=== PATIENT | female | born 1995 | race Caucasian/White ===

== ENCOUNTER 2017-10-05 21:31 | Outpatient (CLI) | payer BC, MEDICAID ==
[~2017-10-05] VITALS: Ht 157.5 cm; Wt 66.7 kg
[~2017-10-05 21:31] MED LIST: AC500T PO; ACHYD1T PO; ANTI15DR4 RIGHT EAR; CEPH500C PO; CYCL5TAB PO; DCS100C PO; HYDR1TAB PO; IBP800T PO; NAPR-243 PO; NITR100C3 PO; PREN1TAB14 PO; PREN1TAB39 PO; PRM25T PO; SULF1TAB38
[2017-10-05 21:49] VITALS: BP 133/78
[2017-10-05] MEDS ORDERED: ASPI-586 PO (23:25)
--- NOTE | 2017-10-06 00:57 | History & Physical ---
History and Physical Date Seen by Provider: Oct 05, 2017 Time Seen by Provider: 23:30 This patient is a 21-year-old white female currently at about 25 weeks gestation. She presented with complaint of abdominal pain after her other child accidentally kicked her in the abdomen. Patient reported having pain at that area. She denies ruptured membranes or bleeding. She is unsure whether she still contractions. Allergies are penicillin sulfa drugs and trimethoprim Medications are vitamins Medical surgical and social histories are per the antepartum record HEENT exam is normal Neck is supple no lymphadenopathy no thyromegaly Abdomen gravid soft nontender nondistended Extremities show no clubbing or cyanosis. His balance. Pelvic exam is deferred monitor fails to show contractions at this point we will continue monitoring for 4 hours after the episode from Patient is Rh- we will accomplish so maternal screen was negative antibody screen and if not contraindicated and we'll give RhoGAM Assessment and plan 25+ week in a patient with trauma to the abdomen during her . We will monitor for any signs of indications of the abruption as evidence by onset of contractions were bleeding or compromise. If the patient remains stable for 4 hours with no concerning findings will discharge home with follow-up in clinic Abdominal trauma in Allergies and Home Medications Allergies Coded Allergies: Sulfa(Sulfonamide Antibiotics) (Unverified Allergy, Severe, 01/15/10) Penicillins (Unverified Allergy, Mild, 06/25/09) Sulfamethoxazole (Unverified Allergy, 12/15/10) trimethoprim (Unverified Allergy, 12/15/10) Home Medications Aspirin 81 Mg Tablet.dr, 81 MG PO DAILY, (Reported) Vits W-Ca,Fe,Fa(<1MG) 1 Each Tablet, 1 EACH PO DAILY, (Reported) Patient Home Medication List Home Medication List Reviewed: Yes JOSE ALEJANDRO CRISTINA MD Oct 06, 2017 12:57 am
--- NOTE | 2017-10-06 01:00 | Discharge Instructions ---
Discharge Instructions Discharge Medications New, Converted or Re-Newed RX: Other Patient Instructions Patient Instructions: As instructed Return to The Hospital For: As instructed Activity & Diet Discharge Diet: No Restrictions Activity as Tolerated: Yes Orders-Post D/C & Referrals Follow Up Appt: Call to make follow up appt. for patient in 3 weeks. Activity: as tolerated. Diet: As tolerated. may shower or tub bathe as desired. JOSE ALEJANDRO CRISTINA MD Oct 06, 2017 1:00 am
== END 2017-10-06 02:25 | disposition home or self-care (01) ==
LOC: WSo 21:31 → LDRP 21:32 → WSo 10-06 02:25
PROVIDERS: ATTEND Obstetrics & Gynecology
DX: O9A.212 Injury, poisoning and certain other consequences of external causes complicating pregnancy, second trimester (principal); S39.91XA Unspecified injury of abdomen, initial encounter; W51.XXXA Accidental striking against or bumped into by another person, initial encounter; Z3A.25 25 weeks gestation of pregnancy; Z79.82 Long term (current) use of aspirin
CPT/HCPCS: 83033; 96372; 99213

== ENCOUNTER 2017-12-30 12:48 | Outpatient (CLI) | payer BC, MEDICAID ==
[~2017-12-30] VITALS: Ht 157.5 cm; Wt 73.9 kg
[~2017-12-30 12:48] MED LIST changes: +ASPI-586 PO
[2017-12-30 12:57] VITALS: BP 119/77
[2017-12-30] MEDS ORDERED: PNV1TABL81 PO (13:29)
[2018-01-03] MEDS ORDERED: OXYC1TAB12 PO (07:39)
[2018-01-03] MEDS ORDERED: DOCU100C37 PO (07:39)
[2018-01-03] MEDS ORDERED: IBUP-1780 PO (07:39)
[2018-01-04] MEDS ORDERED: OXYC-465 PO (07:53)
== END 2017-12-30 13:10 | disposition home or self-care (01) ==
LOC: EEVIPCON 12:48 → PREOP 12:48
PROVIDERS: ATTEND Obstetrics & Gynecology
DX: Z01.818 Encounter for other preprocedural examination (principal)
CPT/HCPCS: 87081

== ENCOUNTER 2018-01-01 10:20 | Inpatient (IN) | payer BC, MEDICAID ==
[~2018-01-01] VITALS: Ht 156.2 cm; Wt 73.9 kg
[~2018-01-01 10:20] MED LIST changes: +PNV1TABL81 PO
[2018-01-01 10:30] VITALS: BP 118/78
[2018-01-01] MEDS ORDERED: D5 LR IV SOLUTION 1,000 ML IV SCH (10:36)
[2018-01-01] MEDS ORDERED: LACTATED RINGERS 2,000 ML IV ONE (10:42)
[2018-01-01] MEDS ORDERED: CITRIC ACID/SOB CIT (BICITRA) 30 ML UDC PO ONE (10:45)
[2018-01-01] MEDS ORDERED: raNItidine INJECTION 50 MG in NS (IVPB) 50 ML IV ONE (10:45)
[2018-01-01] MEDS ORDERED: METOCLOPRAMIDE INJ 10 MG/2 ML (REGLAN) IV ONE (10:45)
--- OUTSIDE RECORDS SUMMARY | 2018-01-01 10:47 | XMS REPORT ---
Author Author KYLE MONAE Organization [facility] Address [address] [place] [address] Care Team Providers Care Special Police Officer Name Role Phone KYLE MONAE Unavailable PROBLEMS Type Condition ICD9-CM Code [id number] Code Onset Dates Condition Status SNOMED Code Problem Unspecified mood [affective] disorder F39 Active 62300932 Problem Acute sinusitis, unspecified 461.9 Active 45894682 ALLERGIES No Information ENCOUNTERS Encounter Location Date Diagnosis [facility] [id number] [place] [address] 94445- 7648 Dec, [facility] [id number] [place] [address] 28972- 2764 Dec, [facility] [id number] [place] [address] 96858- 1690 Dec, [facility] [id number] [place] [address] 58643- 4719 Dec, Unspecified mood [affective] disorder [address] [place] [address] [id number] [place] [address] 88422- 4339 Nov, Unspecified mood [affective] disorder [address] [place] [address] [id number] [place] [address] 09234- 2196 Nov, Unspecified mood [affective] disorder [id number] [place] [address] 13280- 0960 Nov, Unspecified mood [affective] disorder [id number] [place] [address] 50537- 6791 Oct, Unspecified mood [affective] disorder 9 [facility] [id number] [place] [address] 17113- 5588 Oct, Unspecified mood [affective] disorder [address] [facility] [id number], [place] [address] 7055 Oct, Unspecified mood [affective] disorder [address] [facility] [id number], [place] [address]- 9676 Oct, Unspecified mood [affective] disorder [address] [facility] [id number] [place] [address] 13695- 9063 Oct, Unspecified mood [affective] disorder [address] [facility] [id number] [place] [address] 19083- 8286 Sep, Unspecified mood [affective] disorder [address] [facility] [id number] [place] [address] 00903- 7215 Sep, Unspecified mood [affective] disorder [address] [facility] [id number] [place] [address] 46727- 9225 August, Unspecified mood [affective] disorder [address] [facility] [id number] [place] [address] 58307- 6493 August, Unspecified mood [affective] disorder [address] [facility] [id number], [place] [address]- 2676 August, Unspecified mood [affective] disorder [address] [facility] [id number], [place] [address]- 8737 August, Unspecified mood [affective] disorder [address] [facility] [id number], [place] [address]- 7175 Jul, Unspecified mood [affective] disorder [address] [facility] [id number] [place] [address] 24215- 1155 Jul, Unspecified mood [affective] disorder [address] [facility] [id number] [place] [address] 20633- 2528 Jul, Unspecified mood [affective] disorder F39 [facility] [address] [id number] [place] [address] Jul [facility] [address], [place] [address] 1696 Jul, Unspecified mood [affective] disorder F39 [facility] [address] [id number], [place] [address] 0000 Jul, Unspecified mood [affective] disorder F39 [facility] [address] [id number] [id number] Nov, Dental examination Z01.20 [facility] [address] [place] [address] 30068- 4309 Jul, [facility] [address], [place] [address] 3054 Jul, [facility] [address], [place] [address] 3890 Jan, [facility] [address], [place] [address] 3[address] Jan, [facility] [address] [place] [address] 14971- 4069 Dec, [facility] [address], [place] [address] 1742 Jan, [facility] [address], [place] [address] 4[address] May, [facility] [address] [id number], [place] [address] 4043 Mar, [facility] [address], [place] [address] 4895 Mar, [facility] [address] [id number], [place] [address] 6025 Mar, [facility] [address], [place] [address] 1066 Mar, [facility] [address] [facility] [id number] [place] [address]- 6886 Feb, IMMUNIZATIONS No Known Immunizations SOCIAL HISTORY Never Assessed REASON FOR VISIT f/u PLAN OF CARE Activity Details Follow Up 2 Weeks Reason:mood VITAL SIGNS MEDICATIONS Unknown Medications RESULTS No Results PROCEDURES Procedure Date Ordered Result Body Site Psychotherapy, patient &/family, 30 minutes, established patient November 12, 2017 INSTRUCTIONS MEDICATIONS ADMINISTERED No Known Medications MEDICAL (GENERAL) HISTORY Type Description Date Medical History pt is taking a cardiolepadopa Surgical History Surgical History breat augmentation Surgical History dental surgery Hospitalization History surgery
--- OUTSIDE RECORDS SUMMARY | 2018-01-01 10:47 | XMS REPORT ---
Author Author KYLE MONAE Organization [facility] Address [address] [place] [address] Care Team Providers Care Golf Tournament Consultant Name Role Phone KYLE MONAE Unavailable PROBLEMS Type Condition ICD9-CM Code MCZ07-GE Code Onset Dates Condition Status SNOMED Code Problem Unspecified mood [affective] disorder F39 Active 75894508 Problem Acute sinusitis, unspecified 461.9 Active 24329660 ALLERGIES No Information ENCOUNTERS Encounter Location Date Diagnosis [facility] [id number] [place] [address] 49439- 9312 Dec, [facility] [id number] [place] [address] 40123- 2588 Dec, [facility] [id number] [place] [address] 06613- 1955 Nov, Unspecified mood [affective] disorder [id number] [place] [address] 69102- 4479 Nov, Unspecified mood [affective] disorder [id number] [place] [address] 96673- 3082 Nov, Unspecified mood [affective] disorder [id number] [place] [address] 56148- 2779 Oct, Unspecified mood [affective] disorder [id number] [place] [address] 19076- 2407 Oct, Unspecified mood [affective] disorder [id number] [place] [address] 54328- 8180 Oct, Unspecified mood [affective] disorder [address] [place] [address]- 0598 Oct, Unspecified mood [affective] disorder [address] [place] [address] [address], [place] [address]- 2338 Oct, Unspecified mood [affective] disorder F39 [facility] [id number], [place] [address]- 9589 Sep, Unspecified mood [affective] disorder F39 [facility] [address], [place] [address]- 3808 Sep, Unspecified mood [affective] disorder [address], [place] [address]- 2599 August, Unspecified mood [affective] disorder [address] [place] [address] [address], [place] [address]- 9684 August, Unspecified mood [affective] disorder [address], [place] [address]- 2528 August, Unspecified mood [affective] disorder [address], [place] [address]- 3754 August, Unspecified mood [affective] disorder [address] [place] [address] [address], [place] [address]- 9374 Jul, Unspecified mood [affective] disorder [id number], [place] [address]- 4641 Jul, Unspecified mood [affective] disorder [id number], [place] [address]- 9347 Jul, Unspecified mood [affective] disorder [address] [id number] [place] [address] Jul [facility] [address] [facility] [id number], [place] [address]- 7962 Jul, Unspecified mood [affective] disorder F39 [facility] [address], [place] [address]- 1806 Jul, Unspecified mood [affective] disorder F39 [facility] [place] [facility] [address] [id number] [id number] Nov, Dental examination Z01.20 [facility] [address] [place] [address] 83631- 7347 Jul, [facility] [address], [place] [address]- 9678 Jul, [facility] [id number] [place] [address] 34774- 8506 Jan, [facility] [id number] [place] [address] 48524- 9594 Jan, [facility] [id number] [place] [address] 27445- 2980 Dec, [facility] [address] [place] [address] 28406- 0995 Jan, [facility] [address] [place] [address] 75145- 0687 May, [facility] [address], [place] [address]- 7637 Mar, [facility] [address] [place] [address] 20211- 9340 Mar, [facility] [address], [place] [address]- 0813 Mar, [facility] [id number] [place] [address] 58294- 1995 Mar, [facility] [address] [address] 1370 Feb, IMMUNIZATIONS No Known Immunizations SOCIAL HISTORY Never Assessed REASON FOR VISIT f/u PLAN OF CARE Activity Details Follow Up Next available Reason:mood VITAL SIGNS MEDICATIONS Unknown Medications RESULTS No Results PROCEDURES Procedure Date Ordered Result Body Site Psychotherapy, patient &/family, 45 minutes, established patient October 24, 2017 INSTRUCTIONS MEDICATIONS ADMINISTERED No Known Medications MEDICAL (GENERAL) HISTORY Type Description Date Medical History pt is taking a cardiolepadopa Surgical History Surgical History breat augmentation Surgical History dental surgery Hospitalization History surgery
--- OUTSIDE RECORDS SUMMARY | 2018-01-01 10:47 | XMS REPORT ---
Author Author KYLE MONAE Organization [facility] Address [address] [place] [address] Care Team Providers Care Machine Straw Hat Presser Name Role Phone KYLE MONAE Unavailable PROBLEMS Type Condition ICD9-CM Code OGC81-LT Code Onset Dates Condition Status SNOMED Code Problem Unspecified mood [affective] disorder F39 Active 26759619 Problem Acute sinusitis, unspecified 461.9 Active 36831151 ALLERGIES No Information ENCOUNTERS Encounter Location Date Diagnosis [facility] [id number] [place] [address] 16032- 2629 Dec, [facility] [id number] [place] [address] 09984- 6553 Dec, [facility] [id number] [place] [address] 61030- 3978 Nov, Unspecified mood [affective] disorder [id number] [place] [address] 41625- 9789 Nov, Unspecified mood [affective] disorder [id number] [place] [address] 18902- 1803 Nov, Unspecified mood [affective] disorder [id number] [place] [address] 74582- 6963 Oct, Unspecified mood [affective] disorder [id number] [place] [address] 41093- 7756 Oct, Unspecified mood [affective] disorder [id number] [place] [address] 54299- 9368 Oct, Unspecified mood [affective] disorder [address] [place] [address]- 5866 Oct, Unspecified mood [affective] disorder [address] [place] [address] [address], [place] [address]- 5734 Oct, Unspecified mood [affective] disorder F39 [facility] [id number], [place] [address]- 4387 Sep, Unspecified mood [affective] disorder F39 [facility] [address], [place] [address]- 5766 Sep, Unspecified mood [affective] disorder [address], [place] [address]- 8847 August, Unspecified mood [affective] disorder [address] [place] [address] [address], [place] [address]- 0804 August, Unspecified mood [affective] disorder [address], [place] [address]- 3566 August, Unspecified mood [affective] disorder [address], [place] [address]- 2805 August, Unspecified mood [affective] disorder [address] [place] [address] [address], [place] [address]- 8286 Jul, Unspecified mood [affective] disorder [id number], [place] [address]- 2485 Jul, Unspecified mood [affective] disorder [id number], [place] [address]- 3264 Jul, Unspecified mood [affective] disorder [address] [address] [address] [id number] [place] [address] Jul [facility] [address] [facility] [id number] [address]- 7971 Jul, Unspecified mood [affective] disorder F39 [facility] [address], [place] [address]- 5484 Jul, Unspecified mood [affective] disorder F39 [facility] [address] [id number] [id number] Nov, Dental examination Z01.20 [facility] [address], [place] [address]- 1597 Jul, [facility] [address], [place] [address]- 6825 Jul, [facility] [id number] [place] [address] 21947- 5097 Jan, [facility] [id number] [place] [address] 32397- 3015 Jan, [facility] [id number] [place] [address] 14609- 2175 Dec, [facility] [address] [place] [address] 51756- 0136 Jan, [facility] [address] [place] [address] 19945- 4627 May, [facility] [address], [place] [address]- 0656 Mar, [facility] [address] [place] [address] 62067- 6987 Mar, [facility] [address], [place] [address]- 5159 Mar, [facility] [id number] [place] [address] 34013- 1433 Mar, [facility] [address] [address] 5523 Feb, IMMUNIZATIONS No Known Immunizations SOCIAL HISTORY Never Assessed REASON FOR VISIT f/u PLAN OF CARE Activity Details Follow Up 1 Week Reason:mood VITAL SIGNS MEDICATIONS Unknown Medications RESULTS No Results PROCEDURES Procedure Date Ordered Result Body Site Psychotherapy, patient &/family, 45 minutes, established patient October 28, 2017 INSTRUCTIONS MEDICATIONS ADMINISTERED No Known Medications MEDICAL (GENERAL) HISTORY Type Description Date Medical History pt is taking a cardiolepadopa Surgical History Surgical History breat augmentation Surgical History dental surgery Hospitalization History surgery
--- OUTSIDE RECORDS SUMMARY | 2018-01-01 10:47 | XMS REPORT ---
Author Author KYLE MONAE Organization [facility] Address [address] [place] [address] Care Team Providers Care Handy Man Name Role Phone KYLE MONAE Unavailable PROBLEMS Type Condition ICD9-CM Code OMH06-TU Code Onset Dates Condition Status SNOMED Code Problem Unspecified mood [affective] disorder F39 Active [id number] Problem Acute sinusitis, unspecified 461.9 Active [id number] ALLERGIES No Information ENCOUNTERS Encounter Location Date Diagnosis [facility] [id number] [place] [address] 26109- 0994 Dec, [facility] [id number] [place] [address] 18311- 3428 Dec, [facility] [id number] [place] [address] 57942- 6188 Dec, Unspecified mood [affective] disorder [id number] [place] [address] 61236- 4135 Dec, [facility] [id number] [place] [address] 61038- 7245 Nov, Unspecified mood [affective] disorder [address] [place] [address] [id number] [place] [address] 80926- 1672 Nov, Unspecified mood [affective] disorder [id number] [place] [address] 75388- 0315 Nov, Unspecified mood [affective] disorder [id number] [place] [address] 71064- 4956 Oct, Unspecified mood [affective] disorder [id number] [place] [address] 35001- 2734 Oct, Unspecified mood [affective] disorder [address] [facility] [id number], [place] [address] 6307 Oct, Unspecified mood [affective] disorder [address] [facility] [id number], [place] [address] 1146 Oct, Unspecified mood [affective] disorder [address] [facility] [id number] [place] [address] 52081- 4683 Oct, Unspecified mood [affective] disorder [address] [facility] [id number] [place] [address] 70081- 0772 Sep, Unspecified mood [affective] disorder [address] [facility] [id number] [place] [address] 83734- 5938 Sep, Unspecified mood [affective] disorder [address] [facility] [id number] [place] [address] 05932- 2367 August, Unspecified mood [affective] disorder [address] [facility] [id number] [place] [address] 01872- 0888 August, Unspecified mood [affective] disorder [address] [facility] [id number], [place] [address] 8088 August, Unspecified mood [affective] disorder [address] [facility] [id number], [place] [address] 8808 August, Unspecified mood [affective] disorder [address] [facility] [id number], [place] [address]- 2672 Jul, Unspecified mood [affective] disorder [address] [facility] [id number] [place] [address] 12909- 2710 Jul, Unspecified mood [affective] disorder [address] [facility] [id number] [place] [address] 99629- 9251 Jul, Unspecified mood [affective] disorder F39 [facility] [address] [id number] [place] [address] Jul [facility] [address] [address] 1310 Jul, Unspecified mood [affective] disorder F39 [facility] [address] [id number] [address] 0382 Jul, Unspecified mood [affective] disorder F39 [facility] [address] [id number] [address] Nov, Dental examination Z01.20 [facility] [id number] [place] [address] 18519- 7721 Jul, [facility] [address]65[address] [address] 9116 Jul, [facility] [address]65100[place] [address] 7610 Jan, [facility] [address], [place] [address]- 9426 Jan, [facility] [id number] [place] [address] 46844- 1599 Dec, [facility] [address]65[address] [address] 9806 Jan, [facility] [address], [place] [address] 2899 May, [facility] [address] [id number], [place] [address] 1623 Mar, [facility] [address]65100[place], [place] [address]- 9226 Mar, [facility] [address] [id number], [place] [address]- 4603 Mar, [facility] [address], [place] [address]- 1186 Mar, [facility] [address] [facility] [id number] [place] [address]- 9416 Feb, IMMUNIZATIONS No Known Immunizations SOCIAL HISTORY Never Assessed REASON FOR VISIT f/u PLAN OF CARE Activity Details Follow Up 1 Week Reason:mood VITAL SIGNS MEDICATIONS Unknown Medications RESULTS No Results PROCEDURES Procedure Date Ordered Result Body Site Psychotherapy, patient &/family, 45 minutes, established patient November 01, 2017 INSTRUCTIONS MEDICATIONS ADMINISTERED No Known Medications MEDICAL (GENERAL) HISTORY Type Description Date Medical History pt is taking a cardiolepadopa Surgical History Surgical History breat augmentation Surgical History dental surgery Hospitalization History surgery
--- OUTSIDE RECORDS SUMMARY | 2018-01-01 10:48 | XMS REPORT ---
Author Author KYLE MONAE Organization [facility] Address [address] [place] [address] Care Team Providers Care Box Stapler Name Role Phone KYLE MONAE Unavailable PROBLEMS Type Condition ICD9-CM Code TFM83-IP Code Onset Dates Condition Status SNOMED Code Problem Unspecified mood [affective] disorder F39 Active 12097094 Problem Acute sinusitis, unspecified 461.9 Active [id number] ALLERGIES No Information ENCOUNTERS Encounter Location Date Diagnosis [facility] [id number] [place] [address] 73769- 5551 Nov, [facility] [address] 32939- 6740 Nov, Unspecified mood [affective] disorder [id number] [place] [address] 95460- 9087 Oct, Unspecified mood [affective] disorder [id number] [place] [address] 98585- 7171 Oct, Unspecified mood [affective] disorder [id number] [place] [address] 19083- 2819 Oct, Unspecified mood [affective] disorder [id number] [place] [address] 07821- 3713 Oct, Unspecified mood [affective] disorder [id number] [place] [address] 61001- 6292 Oct, Unspecified mood [affective] disorder [id number] [place] [address] 51082- 4440 Sep, Unspecified mood [affective] disorder [address] [facility] [id number], [place] [address]- 4520 Sep, Unspecified mood [affective] disorder F39 [facility] [address] [facility] [id number], [place] [address]- 4697 August, Unspecified mood [affective] disorder F39 [facility] [address] [facility] [id number], [place] [address]- 3609 August, Unspecified mood [affective] disorder F39 [facility] [address] [facility] [id number], [place] [address]- 7416 August, Unspecified mood [affective] disorder [address] [place] [address] [address] [facility] [id number], [place] [address]- 1176 August, Unspecified mood [affective] disorder [address] [place] [address] [address] [facility] [id number], [place] [address]- 8685 Jul, Unspecified mood [affective] disorder F39 [facility] [address] [facility] [id number], [place] [address]- 6520 Jul, Unspecified mood [affective] disorder F39 [facility] [address] [facility] [id number], [place] [address]- 7000 Jul, Unspecified mood [affective] disorder F[address] [id number] [place] [address] Jul [facility] [address]65[address], [place] [address]- 0906 Jul, Unspecified mood [affective] disorder F39 [facility] [address] [facility] [id number], [place] [address]- 6364 Jul, Unspecified mood [affective] disorder F39 [facility] [id number] [id number] Nov, Dental examination Z01.20 [facility] [address]65[address], [place] [address]- 2163 Jul, [facility] [address] [facility] [id number], [place] [address]- 5744 Jul, [facility] [address] [facility] [id number], [place] [address]- 2796 Jan, [facility] [address] [facility] [id number], [place] [address]- 4376 Jan, [facility] [address]65[address], [place] [address]- 7770 Dec, [facility] [address] [facility] [id number], [place] [address]- 1798 Jan, [facility] [address]65100[place], [place] [address]- 2516 May, [facility] [address]65100[place], [place] [address]- 8758 Mar, [facility] [address]65100[place], [place] [address]- 4821 Mar, [facility] [address] 7801 Mar, [facility] [address] [id number], [place] [address]- 2710 Mar, [facility] [address] [id number], [place] [address]- 3871 Feb, IMMUNIZATIONS No Known Immunizations SOCIAL HISTORY Never Assessed REASON FOR VISIT f/u, Depression. PLAN OF CARE Activity Details Follow Up 1 Week Reason:depression VITAL SIGNS MEDICATIONS Unknown Medications RESULTS No Results PROCEDURES Procedure Date Ordered Result Body Site Psychotherapy, patient &/family, 45 minutes, established patient August 26, 2017 INSTRUCTIONS MEDICATIONS ADMINISTERED No Known Medications MEDICAL (GENERAL) HISTORY Type Description Date Medical History pt is taking a cardiolepadopa Surgical History Surgical History breat augmentation Surgical History dental surgery Hospitalization History surgery
--- OUTSIDE RECORDS SUMMARY | 2018-01-01 10:48 | XMS REPORT ---
Author Author KYLE MONAE Organization [facility] Address [address] [place] [address] Care Team Providers Care Field Reporter Name Role Phone KYLE MONAE Unavailable PROBLEMS Type Condition ICD9-CM Code [id number] Code Onset Dates Condition Status SNOMED Code Problem Unspecified mood [affective] disorder F39 Active 61798374 Problem Acute sinusitis, unspecified 461.9 Active [id number] ALLERGIES No Information ENCOUNTERS Encounter Location Date Diagnosis [facility] [id number] [place] [address] 03784- 2253 Nov, [facility] [address] 12263- 5232 Nov, Unspecified mood [affective] disorder [id number] [place] [address] 36441- 0882 Oct, Unspecified mood [affective] disorder [id number] [place] [address] 56473- 3228 Oct, Unspecified mood [affective] disorder [id number] [place] [address] 11375- 8496 Oct, Unspecified mood [affective] disorder [id number] [place] [address] 26640- 3077 Oct, Unspecified mood [affective] disorder [id number] [place] [address] 50405- 4751 Oct, Unspecified mood [affective] disorder [id number] [place] [address] 75235- 6541 Sep, Unspecified mood [affective] disorder [address] [facility] [id number] [address]- 6902 Sep, Unspecified mood [affective] disorder F39 [facility] [address] [facility] [id number] [place] [address]- 9761 August, Unspecified mood [affective] disorder F39 [facility] [address] [facility] [id number] [place] [address]- 9343 August, Unspecified mood [affective] disorder F39 [facility] [address] [facility] [id number] [place] [address]- 2801 August, Unspecified mood [affective] disorder [address] [place] [address] [facility] [id number] [place] [address]- 9930 August, Unspecified mood [affective] disorder [address] [place] [address] [facility] [id number] [place] [address]- 7702 Jul, Unspecified mood [affective] disorder F39 [facility] [address] [facility] [id number] [place] [address]- 9690 Jul, Unspecified mood [affective] disorder F39 [facility] [address] [facility] [id number] [place] [address]- 7739 Jul, Unspecified mood [affective] disorder F[address] [id number] [place] [address] Jul [facility] [address]00565100[place] [address]- 6910 Jul, Unspecified mood [affective] disorder F39 [facility] [address] [facility] [id number] [place] [address]- 8176 Jul, Unspecified mood [affective] disorder F39 [facility] [address] [id number] [address] Nov, Dental examination Z01.20 [facility] [address]00565100[place] [address]- 8182 Jul, [facility] [address] [id number] [address]- 5461 Jul, [facility] [address] [facility] [id number] [place] [address]- 8316 Jan, [facility] [address] [facility] [id number] [place] [address]- 2376 Jan, [facility] [address]00565100[place] [address]- 9995 Dec, [facility] [address] [facility] [id number] [place] [address]- 6120 Jan, [facility] [address]00565100[place] [address]- 6696 May, [facility] [address]00565100[place] [address]- 8094 Mar, [facility] [address]00565100[place] [address]- 9333 Mar, [facility] [address]- 1941 Mar, [facility] [address] [id number] [address]- 0686 Mar, [facility] [address] [id number] [address]- 0433 Feb, IMMUNIZATIONS No Known Immunizations SOCIAL HISTORY Never Assessed REASON FOR VISIT f/u, Depression. PLAN OF CARE Activity Details Follow Up 1 Week Reason:depression VITAL SIGNS MEDICATIONS Unknown Medications RESULTS No Results PROCEDURES Procedure Date Ordered Result Body Site Psychotherapy, patient &/family, 45 minutes, established patient August 19, 2017 INSTRUCTIONS MEDICATIONS ADMINISTERED No Known Medications MEDICAL (GENERAL) HISTORY Type Description Date Medical History pt is taking a cardiolepadopa Surgical History Surgical History breat augmentation Surgical History dental surgery Hospitalization History surgery
--- OUTSIDE RECORDS SUMMARY | 2018-01-01 10:48 | XMS REPORT ---
Author Author PHYLICIA JESSICA [facility] Address [address] [place] [address] Care Team Providers Care Glass Breaker Name Role Phone PHYLICIA JESSICA Unavailable PROBLEMS Type Condition ICD9-CM Code NHX06-GM Code Onset Dates Condition Status SNOMED Code Problem Unspecified mood [affective] disorder F39 Active 53800631 Problem Acute sinusitis, unspecified 461.9 Active 03640743 ALLERGIES Substance Reaction Event Type Date Status Clindamycin HCl rash Drug Allergy August, Active sulfa drugs anaphylaxis Non Drug Allergy August, Active penicillian rash Non Drug Allergy August, Active ENCOUNTERS Encounter Location Date Diagnosis [facility] [id number] [place] [address] 46655- 1005 Nov, [facility] [id number] [place] [address] 03975- 5771 Nov, Unspecified mood [affective] disorder [id number] [place] [address] 08447- 2684 Oct, Unspecified mood [affective] disorder [id number] [place] [address] 18778- 2670 Oct, Unspecified mood [affective] disorder [id number] [place] [address] 60711- 2242 Oct, Unspecified mood [affective] disorder [id number] [place] [address] 00745- 9712 Oct, Unspecified mood [affective] disorder [id number] [place] [address] 05844- 2868 Oct, Unspecified mood [affective] disorder [address] [id number] [place] [address]- 6814 Sep, Unspecified mood [affective] disorder F39 [facility] [address] [facility] [id number] [place] [address]- 0541 Sep, Unspecified mood [affective] disorder [address] [facility] [id number] [place] [address]- 3617 August, Unspecified mood [affective] disorder [address] [id number] [place] [address]- 0665 August, Unspecified mood [affective] disorder [address] [facility] [id number] [place] [address]- 2218 August, Unspecified mood [affective] disorder [address] [facility] [id number] [place] [address]- 9966 August, Unspecified mood [affective] disorder [address] [facility] [id number] [place] [address]- 4346 Jul, Unspecified mood [affective] disorder [address] [facility] [id number] [place] [address]- 2701 Jul, Unspecified mood [affective] disorder [address] [facility] [id number] [place] [address]- 3131 Jul, Unspecified mood [affective] disorder [address] [id number] [place] [address] Jul [facility] [address] [facility] [id number] [place] [address]- 2274 Jul, Unspecified mood [affective] disorder [address] [facility] [id number] [place] [address]- 6003 Jul, Unspecified mood [affective] disorder [address] [facility] [address] [id number] [place] [id number] Nov, Dental examination Z01.20 [facility] [address]005[address]100[place] [address]- 1486 14 Jul, 2014 [facility] [address]00565100[place] [address]- 2656 Jul, [facility] [address]00565100[place] [address]- 4706 Jan, [facility] [id number] [place] [address] 84589- 2856 Jan, [facility] [id number] [place] [address] 70202- 4906 Dec, [facility] [id number] [place] [address] 74143- 3106 Jan, [facility] [id number] [address] 98822- 0536 May, [facility] [address] [id number] [address]- 5206 Mar, [facility] [address] [id number] [address]- 2996 Mar, [facility] [address]00565100[place] [address]- 6516 Mar, [facility] [address]100[place] [address]- 8766 Mar, [facility] [address]00565100[place] [address]- 0716 Feb, IMMUNIZATIONS No Known Immunizations SOCIAL HISTORY Never Assessed REASON FOR VISIT BH intake Henrik PLAN OF CARE Activity Details Follow Up 4 Weeks, prn Reason: VITAL SIGNS Height 61.5 in 2017-08-26 Weight 144.2 lbs 2017-08-26 Heart Rate 84 bpm 2017-08-26 Respiratory Rate 18 2017-08-26 BMI 26.80 kg/m2 2017-08-26 Blood pressure systolic 118 mmHg 2017-08-26 Blood pressure diastolic 68 mmHg 2017-08-26 MEDICATIONS Medication Instructions Dosage Frequency Start Date End Date Duration Status Aspirin Adult Low Dose 81 MG Orally Once a day 1 tablet 24h Active Vitamins 28-0.8 MG Orally Once a day 1 tablet 24h Active Astepro 0.15 % (205.5 mcg) spray 2 sprays (411 mcg) in each nostril by intranasal route 2 times per day Dec, Not-Taking RESULTS No Results PROCEDURES No Known procedures INSTRUCTIONS MEDICATIONS ADMINISTERED No Known Medications MEDICAL (GENERAL) HISTORY Type Description Date Medical History pt is taking a cardiolepadopa Surgical History Surgical History breat augmentation Surgical History dental surgery Hospitalization History surgery
--- OUTSIDE RECORDS SUMMARY | 2018-01-01 10:48 | XMS REPORT ---
Author Author KYLE MONAE Organization [facility] Address [address] [place] [address] Care Team Providers Care Vocational Placement Specialist Name Role Phone KYLE MONAE Unavailable PROBLEMS Type Condition ICD9-CM Code [id number] Code Onset Dates Condition Status SNOMED Code Problem Unspecified mood [affective] disorder F39 Active [id number] Problem Acute sinusitis, unspecified 461.9 Active [id number] ALLERGIES No Information ENCOUNTERS Encounter Location Date Diagnosis [facility] [id number] [place] [address] 31267- 4202 Dec, [facility] [id number] [place] [address] 63126- 1814 Nov, [facility] [id number] [place] [address] 99672- 4921 Nov, Unspecified mood [affective] disorder [id number] [place] [address] 34448- 1732 Nov, Unspecified mood [affective] disorder [id number] [place] [address] 79504- 8595 Oct, Unspecified mood [affective] disorder [id number] [place] [address] 18139- 4465 Oct, Unspecified mood [affective] disorder [id number] [place] [address] 00133- 0078 Oct, Unspecified mood [affective] disorder [id number] [place] [address] 50787- 7218 Oct, Unspecified mood [affective] disorder [address] [place] [address]- 4536 Oct, Unspecified mood [affective] disorder [address] [place] [address] [address], [place] [address] 06[address] Sep, Unspecified mood [affective] disorder F39 [facility] [address], [place] [address] 6335 Sep, Unspecified mood [affective] disorder [address] [place] [address] [address], [place] [address] 9037 August, Unspecified mood [affective] disorder [address] [place] [address] 73908- 5933 August, Unspecified mood [affective] disorder [address], [place] [address] 3232 August, Unspecified mood [affective] disorder [address] [place] [address] [address], [place] [address]- 2117 August, Unspecified mood [affective] disorder [address], [place] [address] 0913 Jul, Unspecified mood [affective] disorder [address], [place] [address]- 5529 Jul, Unspecified mood [affective] disorder [address] [place] [address] [address], [place] [address]- 1138 Jul, Unspecified mood [affective] disorder F39 [facility] [address] [id number] [place] [address] Jul [facility] [id number], [place] [address]- 6524 Jul, Unspecified mood [affective] disorder [address] [place] [address] [id number], [place] [address]- 6851 Jul, Unspecified mood [affective] disorder F39 [facility] [id number] [address] Nov, Dental examination Z01.20 [facility] [address], [place] [address] 1751 Jul, [facility] [address], [place] [address]- 5685 Jul, [facility] [address], [place] [address]- 0477 Jan, [facility] [address], [place] [address]- 4946 Jan, [facility] [address] [place] [address] 98825- 1687 Dec, [facility] [address] [place] [address] 12202- 5499 Jan, [facility] [address], [place] [address] 6955 May, [facility] [address] [place] [address] 07068- 0921 Mar, [facility] [address], [place] [address]- 3137 Mar, [facility] [address], [place] [address] 9004 Mar, [facility] [address], [place] [address] 1889 Mar, [facility] [address] 9413 Feb, IMMUNIZATIONS No Known Immunizations SOCIAL HISTORY Never Assessed REASON FOR VISIT f/u, Depression. PLAN OF CARE Activity Details Follow Up Next available Reason:depression VITAL SIGNS MEDICATIONS Unknown Medications RESULTS No Results PROCEDURES Procedure Date Ordered Result Body Site Psychotherapy, patient &/family, 30 minutes, established patient September 05, 2017 INSTRUCTIONS MEDICATIONS ADMINISTERED No Known Medications MEDICAL (GENERAL) HISTORY Type Description Date Medical History pt is taking a cardiolepadopa Surgical History Surgical History breat augmentation Surgical History dental surgery Hospitalization History surgery
--- OUTSIDE RECORDS SUMMARY | 2018-01-01 10:48 | XMS REPORT ---
Author Author KYLE MONAE Organization [facility] Address [address] [place] [address] Care Team Providers Care Screener Operator Name Role Phone KYLE MONAE Unavailable PROBLEMS Type Condition ICD9-CM Code JNX87-ID Code Onset Dates Condition Status SNOMED Code Problem Unspecified mood [affective] disorder F39 Active 09543140 Problem Acute sinusitis, unspecified 461.9 Active 16493664 ALLERGIES No Information ENCOUNTERS Encounter Location Date Diagnosis [facility] [id number] [place] [address] 80394- 5369 Dec, [facility] [id number] [place] [address] 66587- 6402 Nov, [facility] [id number] [place] [address] 32378- 5672 Nov, Unspecified mood [affective] disorder [id number] [place] [address] 34638- 8507 Nov, Unspecified mood [affective] disorder [id number] [place] [address] 81347- 6938 Oct, Unspecified mood [affective] disorder [id number] [place] [address] 72130- 2401 Oct, Unspecified mood [affective] disorder [id number] [place] [address] 48798- 5208 Oct, Unspecified mood [affective] disorder [id number] [place] [address] 88306- 3976 Oct, Unspecified mood [affective] disorder [address] [place] [address]- 3660 Oct, Unspecified mood [affective] disorder [address] [place] [address] [address], [place] [address] 6007 Sep, Unspecified mood [affective] disorder F39 [facility] [address], [place] [address]- 2749 Sep, Unspecified mood [affective] disorder [address] [place] [address] [address], [place] [address]- 9066 August, Unspecified mood [affective] disorder [address] [place] [address] 15035- 0752 August, Unspecified mood [affective] disorder [address], [place] [address] 4259 August, Unspecified mood [affective] disorder [address] [place] [address] [address], [place] [address]- 7382 August, Unspecified mood [affective] disorder [address], [place] [address]- 9787 Jul, Unspecified mood [affective] disorder [address], [place] [address]- 8262 Jul, Unspecified mood [affective] disorder [address] [place] [address] [address], [place] [address]- 4216 Jul, Unspecified mood [affective] disorder F39 [facility] [address] [id number] [place] [address] Jul [facility] [id number], [place] [address]- 0503 Jul, Unspecified mood [affective] disorder [address] [place] [address] [id number], [place] [address]- 0418 Jul, Unspecified mood [affective] disorder F39 [facility] [id number] [address] Nov, Dental examination Z01.20 [facility] [address], [place] [address]- 5405 Jul, [facility] [address], [place] [address]- 8527 Jul, [facility] [address], [place] [address]- 4715 Jan, [facility] [address], [place] [address]- 1165 Jan, [facility] [address], [place] [address]- 4474 Dec, [facility] [address], [place] [address]- 3741 Jan, [facility] [address], [place] [address]- 2052 May, [facility] [address], [place] [address]- 9707 Mar, [facility] [address], [place] [address]- 9888 Mar, [facility] [address], [place] [address]- 4051 Mar, [facility] [address], [place] [address]- 5138 Mar, [facility] [address] 8661 Feb, IMMUNIZATIONS No Known Immunizations SOCIAL HISTORY Never Assessed REASON FOR VISIT f/u, Depression. PLAN OF CARE Activity Details Follow Up 2 - 3 Days Reason:mood VITAL SIGNS MEDICATIONS Unknown Medications RESULTS No Results PROCEDURES Procedure Date Ordered Result Body Site Psychotherapy, patient &/family, 45 minutes, established patient September 02, 2017 INSTRUCTIONS MEDICATIONS ADMINISTERED No Known Medications MEDICAL (GENERAL) HISTORY Type Description Date Medical History pt is taking a cardiolepadopa Surgical History Surgical History breat augmentation Surgical History dental surgery Hospitalization History surgery
--- OUTSIDE RECORDS SUMMARY | 2018-01-01 10:48 | XMS REPORT ---
Author Author KYLE MONAE Organization [facility] Address [address] [place] [address] Care Team Providers Care Remote Ruby On Rails Developer Name Role Phone KYLE MONAE Unavailable PROBLEMS Type Condition ICD9-CM Code LIP66-NV Code Onset Dates Condition Status SNOMED Code Problem Unspecified mood [affective] disorder F39 Active 27950889 Problem Acute sinusitis, unspecified 461.9 Active [id number] ALLERGIES No Information ENCOUNTERS Encounter Location Date Diagnosis [facility] [id number] [place] [address] 60125- 5988 Dec, [facility] [id number] [place] [address] 45445- 5347 Nov, [facility] [id number] [place] [address] 28091- 0441 Nov, [facility] [id number] [place] [address] 60696- 2252 Oct, Unspecified mood [affective] disorder [address] [place] [address] [id number] [place] [address] 42625- 6466 Oct, Unspecified mood [affective] disorder [address] [place] [address] [id number] [place] [address] 56957- 7022 Oct, Unspecified mood [affective] disorder [id number] [place] [address] 69389- 7300 Oct, Unspecified mood [affective] disorder [id number] [place] [address] 32924- 3098 Oct, Unspecified mood [affective] disorder [id number] [place] [address] 92319- 0536 Sep, Unspecified mood [affective] disorder F39 [facility] [address] [facility] [id number], [place] [address]- 8936 Sep, Unspecified mood [affective] disorder F39 [facility] [address] [facility] [place] [id number], [place] [address]- 4731 August, Unspecified mood [affective] disorder F39 [facility] [address] [facility] [place] [id number], [place] [address]- 6766 August, Unspecified mood [affective] disorder F39 [facility] [address] [facility] [place] [id number], [place] [address]- 9568 August, Unspecified mood [affective] disorder F39 [facility] [address] [facility] [place] [id number], [place] [address]- 8570 August, Unspecified mood [affective] disorder F39 [facility] [address] [facility] [place] [id number], [place] [address]- 0824 Jul, Unspecified mood [affective] disorder F39 [facility] [address] [facility] [place] [id number], [place] [address]- 3341 Jul, Unspecified mood [affective] disorder F39 [facility] [address] [facility] [place] [id number], [place] [address]- 6854 Jul, Unspecified mood [affective] disorder [address] [id number] [place] [address] Jul [facility] [address] [facility] [place] [id number], [place] [address]- 2270 Jul, Unspecified mood [affective] disorder F39 [facility] [address] [facility] [place] [id number], [place] [address]- 5696 Jul, Unspecified mood [affective] disorder F39 [facility] [address] [id number] [address] Nov, Dental examination Z01.20 [facility] [address], [place] [address] 2546 14 Jul, 2014 [facility] [address], [place] [address]- 2476 Jul, [facility] [address], [place] [address]- 2546 Jan, [facility] [address], [place] [address]- 2546 Jan, [facility] [address], [place] [address]- 2546 Dec, [facility] [address], [place] [address]- 6356 Jan, [facility] [address], [place] [address]- 2546 May, [facility] [address], [place] [address]- 7166 Mar, [facility] [address], [place] [address]- 7967 Mar, [facility] [address], [place] [address]- 4486 Mar, [facility] [id number], [place] [address]- 3326 Mar, [facility] [id number], [place] [address]- 2546 Feb, IMMUNIZATIONS No Known Immunizations SOCIAL HISTORY Never Assessed REASON FOR VISIT Depression. PLAN OF CARE Activity Details Follow Up 1 Week Reason:depression VITAL SIGNS MEDICATIONS Unknown Medications RESULTS No Results PROCEDURES Procedure Date Ordered Result Body Site Psychotherapy, patient &/family, 45 minutes, established patient August 15, 2017 INSTRUCTIONS MEDICATIONS ADMINISTERED No Known Medications MEDICAL (GENERAL) HISTORY Type Description Date Medical History pt is taking a cardiolepadopa Surgical History Surgical History breat augmentation Surgical History dental surgery Hospitalization History surgery
--- OUTSIDE RECORDS SUMMARY | 2018-01-01 10:48 | XMS REPORT ---
Author Author KYLE MONAE Organization [facility] Address [address] [place] [address] Care Team Providers Care Starchmaker Name Role Phone KYLE MONAE Unavailable PROBLEMS Type Condition ICD9-CM Code LZH48-LM Code Onset Dates Condition Status SNOMED Code Problem Unspecified mood [affective] disorder F39 Active 66425171 Problem Acute sinusitis, unspecified 461.9 Active 65367818 ALLERGIES No Information ENCOUNTERS Encounter Location Date Diagnosis [facility] [id number] [place] [address] 65580- 2165 Dec, [facility] [id number] [place] [address] 00066- 8021 Dec, [facility] [id number] [place] [address] 25237- 5450 Nov, [facility] [id number] [place] [address] 32905- 1782 Nov, Unspecified mood [affective] disorder [address] [place] [address] [id number] [place] [address] 61776- 2161 Nov, Unspecified mood [affective] disorder [address] [place] [address] [id number] [place] [address] 46621- 8507 Oct, Unspecified mood [affective] disorder [id number] [place] [address] 78936- 7395 Oct, Unspecified mood [affective] disorder [id number] [place] [address] 51301- 0771 Oct, Unspecified mood [affective] disorder [id number] [place] [address] 86943- 1950 Oct, Unspecified mood [affective] disorder [address] [place] [address] [address] [facility] [id number], [place] [address]- 8510 Oct, Unspecified mood [affective] disorder F39 [facility] [address] [facility] [id number], [place] [address]- 4029 Sep, Unspecified mood [affective] disorder [address] [facility] [id number], [place] [address]- 2973 Sep, Unspecified mood [affective] disorder [address] [facility] [id number], [place] [address]- 0310 August, Unspecified mood [affective] disorder [address] [facility] [id number], [place] [address]- 6460 August, Unspecified mood [affective] disorder [address] [facility] [id number], [place] [address]- 3638 August, Unspecified mood [affective] disorder [address] [facility] [id number], [place] [address]- 0049 August, Unspecified mood [affective] disorder [address] [facility] [id number], [place] [address]- 5814 Jul, Unspecified mood [affective] disorder [address] [facility] [id number], [place] [address]- 6689 Jul, Unspecified mood [affective] disorder [address] [facility] [id number], [place] [address]- 7207 Jul, Unspecified mood [affective] disorder [address] [id number] [place] [address] Jul [facility] [address] [facility] [id number], [place] [address]- 0897 Jul, Unspecified mood [affective] disorder [address], [place] [address]- 7351 Jul, Unspecified mood [affective] disorder F39 [facility] [address] [address] Nov, Dental examination Z01.20 [facility] [address], [place] [address]- 5106 14 Jul, 2014 [facility] [address] [place] [address] 36390- 5811 Jul, [facility] [address] [place] [address] 63246- 3549 Jan, [facility] [id number] [place] [address] 65391- 8136 Jan, [facility] [address] [place] [address] 67512- 9908 Dec, [facility] [id number] [place] [address] 78295- 9716 Jan, [facility] [address] [place] [address] 60966- 8835 May, [facility] [address] [place] [address] 73158- 3175 Mar, [facility] [address] [place] [address] 48073- 5342 Mar, [facility] [address], [place] [address]- 5741 Mar, [facility] [address] [place] [address] 43224- 0794 Mar, [facility] [address] [place] [address] 67115- 7524 Feb, IMMUNIZATIONS No Known Immunizations SOCIAL HISTORY Never Assessed REASON FOR VISIT f/u PLAN OF CARE Activity Details Follow Up Next available Reason:,ppd VITAL SIGNS MEDICATIONS Unknown Medications RESULTS No Results PROCEDURES Procedure Date Ordered Result Body Site Psychotherapy, patient &/family, 30 minutes, established patient October 18, 2017 INSTRUCTIONS MEDICATIONS ADMINISTERED No Known Medications MEDICAL (GENERAL) HISTORY Type Description Date Medical History pt is taking a cardiolepadopa Surgical History Surgical History breat augmentation Surgical History dental surgery Hospitalization History surgery
--- OUTSIDE RECORDS SUMMARY | 2018-01-01 10:48 | XMS REPORT ---
Author Author KYLE MONAE Organization [facility] Address [address] [place] [address] Care Team Providers Care Blueprint Maker Name Role Phone KYLE MONAE Unavailable PROBLEMS Type Condition ICD9-CM Code EOD74-MB Code Onset Dates Condition Status SNOMED Code Problem Unspecified mood [affective] disorder F39 Active 77643955 Problem Acute sinusitis, unspecified 461.9 Active 77778309 ALLERGIES No Information ENCOUNTERS Encounter Location Date Diagnosis [facility] [id number] [place] [address] 25465- 3820 Dec, [facility] [id number] [place] [address] 01397- 7640 Nov, [facility] [id number] [place] [address] 09742- 2503 Nov, Unspecified mood [affective] disorder [id number] [place] [address] 45551- 5745 Nov, Unspecified mood [affective] disorder [id number] [place] [address] 00954- 8257 Oct, Unspecified mood [affective] disorder [id number] [place] [address] 21490- 3696 Oct, Unspecified mood [affective] disorder [id number] [place] [address] 49036- 3014 Oct, Unspecified mood [affective] disorder [id number] [place] [address] 51413- 7934 Oct, Unspecified mood [affective] disorder [address] [place] [address]- 8432 Oct, Unspecified mood [affective] disorder [address] [place] [address] [address] [address] 1004 Sep, Unspecified mood [affective] disorder F39 [facility] [address] [address]- 8482 Sep, Unspecified mood [affective] disorder [address] [place] [address] [address] [address] 5951 August, Unspecified mood [affective] disorder [address] [place] [address] 12207- 2557 August, Unspecified mood [affective] disorder [address] [address] 7073 August, Unspecified mood [affective] disorder [address] [place] [address] [address] [address] 4187 August, Unspecified mood [affective] disorder [address] [address] 5634 Jul, Unspecified mood [affective] disorder [address], [place] [address] 6350 Jul, Unspecified mood [affective] disorder [address] [place] [address] [address], [place] [address] 0862 Jul, Unspecified mood [affective] disorder F39 [facility] [address] [id number] [place] [address] Jul [facility] [id number] [address]- 3036 Jul, Unspecified mood [affective] disorder [address] [place] [address] [id number] [address]- 5502 Jul, Unspecified mood [affective] disorder F39 [facility] [id number] [address] Nov, Dental examination Z01.20 [facility] [address], [place] [address]- 2435 Jul, [facility] [address] [address]- 9612 Jul, [facility] [address] [address]- 3395 Jan, [facility] [address] [address]- 5073 Jan, [facility] [address] [place] [address] 73325- 0017 Dec, [facility] [address] [place] [address] 99141- 4055 Jan, [facility] [address], [place] [address]- 5047 May, [facility] [address] [place] [address] 08388- 9042 Mar, [facility] [address] [address]- 6628 Mar, [facility] [address], [place] [address]- 3178 Mar, [facility] [address], [place] [address]- 0544 Mar, [facility] [address] [address] 9[address] Feb, IMMUNIZATIONS No Known Immunizations SOCIAL HISTORY Never Assessed REASON FOR VISIT f/u, Depression. PLAN OF CARE Activity Details Follow Up Next available Reason:depression VITAL SIGNS MEDICATIONS Unknown Medications RESULTS No Results PROCEDURES Procedure Date Ordered Result Body Site Psychotherapy, patient &/family, 45 minutes, established patient October 14, 2017 INSTRUCTIONS MEDICATIONS ADMINISTERED No Known Medications MEDICAL (GENERAL) HISTORY Type Description Date Medical History pt is taking a cardiolepadopa Surgical History Surgical History breat augmentation Surgical History dental surgery Hospitalization History surgery
--- OUTSIDE RECORDS SUMMARY | 2018-01-01 10:48 | XMS REPORT ---
Author Author PHYLICIA JESSICA [facility] Address [address] [place] [address] Care Team Providers Care Cuff Cutter Name Role Phone SALLIECHRIS DANIELYLA Unavailable PROBLEMS Type Condition ICD9-CM Code VHK00-HT Code Onset Dates Condition Status SNOMED Code Problem Unspecified mood [affective] disorder F39 Active 87540432 Problem Acute sinusitis, unspecified 461.9 Active 14231916 ALLERGIES Substance Reaction Event Type Date Status Clindamycin HCl rash Drug Allergy Jul, Active sulfa drugs Unknown Non Drug Allergy Jul, Active penicillian Unknown Non Drug Allergy Jul, Active ENCOUNTERS Encounter Location Date Diagnosis [facility] [id number] [place] [address] 84126- 0676 Dec, [facility] [id number] [place] [address] 11610- 9630 Nov, [facility] [id number] [place] [address] 95977- 6788 Nov, [facility] [id number] [place] [address] 32738- 7471 Oct, Unspecified mood [affective] disorder F39 [facility] [id number] [place] [address] 17404- 6642 Oct, Unspecified mood [affective] disorder F39 [facility] [id number] [place] [address] 99900- 7207 Oct, Unspecified mood [affective] disorder F39 [facility] [id number] [place] [address] 44685- 1237 Oct, Unspecified mood [affective] disorder F39 [facility] [id number] [place] [address] 86306- 9907 Oct, Unspecified mood [affective] disorder [address] [facility] [id number], [place] [address]- 7302 Sep, Unspecified mood [affective] disorder [address] [facility] [id number], [place] [address]- 0655 Sep, Unspecified mood [affective] disorder [address] [facility] [id number], [place] [address]- 6944 August, Unspecified mood [affective] disorder [address] [facility] [id number] [place] [address] 19478- 1399 August, Unspecified mood [affective] disorder [address] [id number], [place] [address]- 8074 August, Unspecified mood [affective] disorder [id number] [place] [address] 11946- 0962 August, Unspecified mood [affective] disorder [address] [facility] [id number], [place] [address]- 8991 Jul, Unspecified mood [affective] disorder [id number], [place] [address]- 2180 Jul, Unspecified mood [affective] disorder [id number], [place] [address]- 4946 Jul, Unspecified mood [affective] disorder [address] [place] [id number] [place] [address] Jul [facility] [address] [id number], [place] [address]- 0056 Jul, Unspecified mood [affective] disorder [address] [facility] [id number], [place] [address]- 0774 Jul, Unspecified mood [affective] disorder F39 [facility] [address] [id number] [address] Nov, Dental examination Z01.20 [facility] [address], [place] [address]- 6686 14 Jul, 2014 [facility] [address], [place] [address]- 3068 Jul, [facility] [address], [place] [address]- 7584 Jan, [facility] [address] [place] [address] 61393- 8361 Jan, [facility] [address] [place] [address] 20855- 5151 Dec, [facility] [id number] [place] [address] 76643- 4184 Jan, [facility] [address], [place] [address]- 2297 May, [facility] [address], [place] [address]- 3162 Mar, [facility] [address], [place] [address]- 0591 Mar, [facility] [address], [place] [address]- 7744 Mar, [facility] [address], [place] [address]- 4104 Mar, [facility] [address] [id number], [place] [address]- 0158 Feb, IMMUNIZATIONS No Known Immunizations SOCIAL HISTORY Never Assessed REASON FOR VISIT BH intake CBrumbackRN PLAN OF CARE Activity Details Follow Up 2 Weeks, prn Reason: VITAL SIGNS Height 61.5 in 2017-08-14 Weight 139.7 lbs 2017-08-14 Heart Rate 92 bpm 2017-08-14 Respiratory Rate 16 2017-08-14 BMI 25.97 kg/m2 2017-08-14 Blood pressure systolic 108 mmHg 2017-08-14 Blood pressure diastolic 66 mmHg 2017-08-14 MEDICATIONS Medication Instructions Dosage Frequency Start Date End Date Duration Status Astepro 0.15 % (205.5 mcg) spray 2 sprays (411 mcg) in each nostril by intranasal route 2 times per day Dec, Not-Taking Aspirin Adult Low Dose 81 MG Orally Once a day 1 tablet 24h Active Vitamins 28-0.8 MG Orally Once a day 1 tablet 24h Active RESULTS No Results PROCEDURES No Known procedures INSTRUCTIONS MEDICATIONS ADMINISTERED No Known Medications MEDICAL (GENERAL) HISTORY Type Description Date Medical History pt is taking a cardiolepadopa Surgical History Surgical History breat augmentation Surgical History dental surgery Hospitalization History surgery
--- OUTSIDE RECORDS SUMMARY | 2018-01-01 10:49 | XMS REPORT ---
Author Author KYLE MONAE Organization [facility] Address [address] [place] [address] Care Team Providers Care Interventional Radiologist Name Role Phone KYLE MONAE Unavailable PROBLEMS Type Condition ICD9-CM Code ZTU17-VI Code Onset Dates Condition Status SNOMED Code Problem Unspecified mood [affective] disorder F39 Active 82624279 Problem Acute sinusitis, unspecified 461.9 Active 11094110 ALLERGIES No Information ENCOUNTERS Encounter Location Date Diagnosis [facility] [id number] [place] [address] 81662- 3620 Dec, [facility] [id number] [place] [address] 29151- 2347 Nov, [facility] [id number] [place] [address] 23580- 2106 Nov, [facility] [id number] [place] [address] 96372- 1674 Oct, Unspecified mood [affective] disorder [address] [place] [address] [id number] [place] [address] 50339- 5670 Oct, Unspecified mood [affective] disorder [address] [place] [address] [id number] [place] [address] 87785- 2794 Oct, Unspecified mood [affective] disorder [id number] [place] [address] 49417- 7219 Oct, Unspecified mood [affective] disorder [id number] [place] [address] 57766- 8381 Oct, Unspecified mood [affective] disorder [id number] [place] [address] 35922- 4189 Sep, Unspecified mood [affective] disorder F39 [facility] [address] [facility] [id number] [place] [address]- 1266 Sep, Unspecified mood [affective] disorder F39 [facility] [address] [facility] [id number] [place] [address]- 1523 August, Unspecified mood [affective] disorder F39 [facility] [address] [facility] [id number] [place] [address]- 1736 August, Unspecified mood [affective] disorder F39 [facility] [address] [facility] [id number] [place] [address]- 4662 August, Unspecified mood [affective] disorder F39 [facility] [address] [facility] [id number] [place] [address]- 8449 August, Unspecified mood [affective] disorder F39 [facility] [address] [facility] [id number] [place] [address]- 5976 Jul, Unspecified mood [affective] disorder F39 [facility] [address] [facility] [id number] [place] [address]- 2554 Jul, Unspecified mood [affective] disorder F39 [facility] [address] [facility] [id number] [place] [address]- 5360 Jul, Unspecified mood [affective] disorder F[address] [id number] [place] [address] Jul [facility] [address] [facility] [id number] [place] [address]- 4674 Jul, Unspecified mood [affective] disorder F39 [facility] [address] [facility] [id number] [place] [address]- 2381 Jul, Unspecified mood [affective] disorder F39 [facility] [address] [id number] [place] [address] Nov, Dental examination Z01.20 [facility] [address]005[address] [address]- 8531 14 Jul, 2014 [facility] [address] [address]- 6379 Jul, [facility] [address] [facility] [id number] [place] [address]- 1836 Jan, [facility] [address]00565[address] [address]- 3469 Jan, [facility] [address] [facility] [id number] [place] [address]- 4031 Dec, [facility] [address] [address]- 2184 Jan, [facility] [address] [address]- 7615 May, [facility] [address] [address]- 1289 Mar, [facility] [address] 5060 Mar, [facility] [address] [address]- 1875 Mar, [facility] [id number] 0676 Mar, [facility] [address] [id number] [address]- 4539 Feb, IMMUNIZATIONS No Known Immunizations SOCIAL HISTORY Never Assessed REASON FOR VISIT intake PLAN OF CARE Activity Details Follow Up next available Reason:mood VITAL SIGNS MEDICATIONS Unknown Medications RESULTS No Results PROCEDURES Procedure Date Ordered Result Body Site Psych diagnostic evaluation, established patient August 07, 2017 INSTRUCTIONS MEDICATIONS ADMINISTERED No Known Medications MEDICAL (GENERAL) HISTORY Type Description Date Medical History pt is taking a cardiolepadopa Surgical History Surgical History breat augmentation Surgical History dental surgery Hospitalization History surgery
--- OUTSIDE RECORDS SUMMARY | 2018-01-01 10:49 | XMS REPORT ---
Author Author KYLE MONAE Organization [facility] Address [address] [place] [address] Care Team Providers Care Refrigeration Brazer/Solderer Name Role Phone KYLE MONAE Unavailable PROBLEMS Type Condition ICD9-CM Code HAY87-VC Code Onset Dates Condition Status SNOMED Code Problem Unspecified mood [affective] disorder F39 Active 40512260 Problem Acute sinusitis, unspecified 461.9 Active 94686767 ALLERGIES No Information ENCOUNTERS Encounter Location Date Diagnosis [facility] [id number] [place] [address] 30677- 5822 Dec, [facility] [id number] [place] [address] 79683- 4452 Nov, [facility] [id number] [place] [address] 36204- 4074 Nov, [facility] [id number] [place] [address] 51296- 7590 Oct, Unspecified mood [affective] disorder [address] [place] [address] [id number] [place] [address] 87639- 8207 Oct, Unspecified mood [affective] disorder [address] [place] [address] [id number] [place] [address] 76693- 8801 Oct, Unspecified mood [affective] disorder [id number] [place] [address] 50117- 2606 Oct, Unspecified mood [affective] disorder [id number] [place] [address] 26829- 1615 Oct, Unspecified mood [affective] disorder [id number] [place] [address] 85585- 9182 Sep, Unspecified mood [affective] disorder F39 [facility] [address] [facility] [id number], [place] [address]- 3530 Sep, Unspecified mood [affective] disorder F39 [facility] [address] [facility] [id number], [place] [address]- 5410 August, Unspecified mood [affective] disorder F39 [facility] [address] [facility] [id number], [place] [address]- 6247 August, Unspecified mood [affective] disorder F39 [facility] [address] [facility] [id number], [place] [address]- 2120 August, Unspecified mood [affective] disorder F39 [facility] [address] [facility] [id number], [place] [address]- 2862 August, Unspecified mood [affective] disorder F39 [facility] [address] [facility] [id number], [place] [address]- 5999 Jul, Unspecified mood [affective] disorder F39 [facility] [address] [facility] [id number], [place] [address]- 0760 Jul, Unspecified mood [affective] disorder F39 [facility] [address] [facility] [id number], [place] [address]- 7211 Jul, Unspecified mood [affective] disorder [address] [id number] [place] [address] Jul [facility] [address] [facility] [id number], [place] [address]- 7520 Jul, Unspecified mood [affective] disorder F39 [facility] [address] [facility] [id number], [place] [address]- 2814 Jul, Unspecified mood [affective] disorder F39 [facility] [address] [id number][place] [id number] Nov, Dental examination Z01.20 [facility] [address], [place] [address]- 9906 14 Jul, 2014 [facility] [address], [place] [address]- 8276 Jul, [facility] [address], [place] [address]- 2546 Jan, [facility] [address]100[place], [place] [address]- 0796 Jan, [facility] [address], [place] [address]- 5813 Dec, [facility] [address], [place] [address]- 9466 Jan, [facility] [address], [place] [address]- 8926 May, [facility] [address], [place] [address]- 6606 Mar, [facility] [address], [place] [address]- 7048 Mar, [facility] [address], [place] [address]- 2556 Mar, [facility] [address] [id number], [place] [address]- 9059 Mar, [facility] [address] [id number], [place] [address]- 8726 Feb, IMMUNIZATIONS No Known Immunizations SOCIAL HISTORY Never Assessed REASON FOR VISIT BH f/u, Depression. PLAN OF CARE Activity Details Follow Up Next available Reason:mood VITAL SIGNS MEDICATIONS Unknown Medications RESULTS No Results PROCEDURES Procedure Date Ordered Result Body Site Psychotherapy, patient &/family, 30 minutes, established patient August 13, 2017 INSTRUCTIONS MEDICATIONS ADMINISTERED No Known Medications MEDICAL (GENERAL) HISTORY Type Description Date Medical History pt is taking a cardiolepadopa Surgical History Surgical History breat augmentation Surgical History dental surgery Hospitalization History surgery
--- OUTSIDE RECORDS SUMMARY | 2018-01-01 10:49 | XMS REPORT ---
Author Author KYLE MONAE Organization [facility] Address [address] [place] [address] Care Team Providers Care Ground Host/Hostess Name Role Phone KYLE MONAE Unavailable PROBLEMS Type Condition ICD9-CM Code GPA81-LB Code Onset Dates Condition Status SNOMED Code Problem Unspecified mood [affective] disorder F39 Active [id number] Problem Acute sinusitis, unspecified 461.9 Active 68015801 ALLERGIES No Information ENCOUNTERS Encounter Location Date Diagnosis [facility] [id number] [place] [address]- [address]797 Dec, [facility] [id number] [place] [address]- 1353 Nov, [facility] [id number] [place] [address] 12805- [address]30 Nov, [facility] [id number] [place] [address]25- 7701 Oct, Unspecified mood [affective] disorder [address] [place] [address] [id number] [place] [address]6380- 6933 Oct, Unspecified mood [affective] disorder [address] [place] [address] [id number] [place] [address]957- 9910 Oct, Unspecified mood [affective] disorder [id number] [place] [address] 12174- 5590 Oct, Unspecified mood [affective] disorder [id number] [place] [address] 86990- 7001 Oct, Unspecified mood [affective] disorder [id number] [place] [address] 17597- 6077 Sep, Unspecified mood [affective] disorder F39 [facility] [address] [facility] [id number], [place] [address] Sep, Unspecified mood [affective] disorder F39 [facility] [address] [facility] [id number], [place] [address] August, Unspecified mood [affective] disorder F39 [facility] [address] [facility] [id number], [place] [address] August, Unspecified mood [affective] disorder F39 [facility] [address] [facility] [id number], [place] [address] August, Unspecified mood [affective] disorder F39 [facility] [address] [facility] [id number], [place] [address] August, Unspecified mood [affective] disorder F39 [facility] [address] [facility] [id number], [place] [address] Jul, Unspecified mood [affective] disorder F39 [facility] [address] [facility] [id number], [place] [address] Jul, Unspecified mood [affective] disorder F39 [facility] [address] [facility] [id number], [place] [address] Jul, Unspecified mood [affective] disorder F39 [address] [id number] [place] [address] Jul [facility] [address] [facility] [id number], [place] [address] Jul, Unspecified mood [affective] disorder F39 [facility] [address] [facility] [id number], [place] [address] Jul, Unspecified mood [affective] disorder F39 [facility] [address] [id number][place] [id number] Nov, Dental examination Z01.20 [facility] [address] [facility] [id number], [place] [address] 14 Jul, 2014 [facility] [address] [facility] [id number], [place] [address] Jul, [facility] [address] [facility] [id number], [place] [address] 2546 Jan, [facility] [address] [facility] [id number], [place] [address] Jan, [facility] [address] [facility] [id number], [place] [address] Dec, [facility] [address] [place] [address] 27952- 1585 Jan, [facility] [address], [place] [address] May, [facility] [address]65[address], [place] [address] Mar, [facility] [address]65[address], [place] [address] Mar, [facility] [address], [place] [address] Mar, [facility] [address] [id number], [place] [address] Mar, [facility] [address] [id number], [place] [address] Feb, IMMUNIZATIONS No Known Immunizations SOCIAL HISTORY Never Assessed REASON FOR VISIT emotional distress PLAN OF CARE VITAL SIGNS MEDICATIONS Unknown Medications RESULTS No Results PROCEDURES No Known procedures INSTRUCTIONS MEDICATIONS ADMINISTERED No Known Medications MEDICAL (GENERAL) HISTORY Type Description Date Medical History pt is taking a cardiolepadopa Surgical History Surgical History breat augmentation Surgical History dental surgery Hospitalization History surgery
--- OUTSIDE RECORDS SUMMARY | 2018-01-01 10:49 | XMS REPORT ---
Author Author JAVED COUGHLIN [facility] Address Unknown Care Team Providers Care Children'S Program Coordinator Name Role Phone JAVED COUGHLIN Unavailable PROBLEMS Type Condition ICD9-CM Code FWN44-AW Code Onset Dates Condition Status SNOMED Code Problem Unspecified mood [affective] disorder F39 Active 69089762 Problem Acute sinusitis, unspecified 461.9 Active 93055830 ALLERGIES Substance Reaction Event Type Date Status penicillian Unknown Non Drug Allergy Nov, Active sulfa drugs Unknown Non Drug Allergy Nov, Active ENCOUNTERS Encounter Location Date Diagnosis [facility] [id number] [place] [address] 57682- 5351 August, [facility] [id number] [place] [address] 69385- 0042 August, [facility] [id number] [place] [address] 42301- 2398 Jul, [facility] [id number] [place] [address] 40112- 4005 Jul, Unspecified mood [affective] disorder F39 [facility] [id number] [place] [address] 80841- 6527 Jul, Unspecified mood [affective] disorder F39 [facility] [id number] [place] [id number] Nov, Dental examination Z01.20 [facility] [address] [address]- [address] Jul, [facility] [id number] [place] [address] 44885- 3145 Jul, [facility] [id number] [place] [address] 11677- 7828 Jan, [facility] [id number] [address] Jan, [facility] [address] [address] Dec, [facility] [address] [address] Jan, [facility] [address] [address] May, [facility] [address] [address] Mar, [facility] [id number] [place] [address] 41085- 9026 Mar, [facility] [address] [address] 1435 Mar, [facility] [address] [address] Mar, [facility] [id number] [address] 98[address] Feb, IMMUNIZATIONS No Known Immunizations SOCIAL HISTORY Never Assessed REASON FOR VISIT abimael PLAN OF CARE Activity Details Follow Up prn Reason:ronal/hygiene VITAL SIGNS Blood pressure systolic 113 mmHg 2016-12-13 Blood pressure diastolic 84 mmHg 2016-12-13 MEDICATIONS Unknown Medications RESULTS No Results PROCEDURES Procedure Date Ordered Result Body Site LTD ORAL EVALUATION - PROBLEM FOCUS Dec 13, 2016 BITEWING - SINGLE FILM Dec 13, 2016 PANORAMIC FILM SEE ALSO CODE 80820 Dec 13, 2016 INSTRUCTIONS MEDICATIONS ADMINISTERED No Known Medications MEDICAL (GENERAL) HISTORY Type Description Date Medical History pt is taking a cardiolepadopa Surgical History 

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
[2018-01-01] MEDS ORDERED: LACTATED RINGERS 1,000 ML IV PRN (11:11)
[2018-01-01 11:14] LABS: BASOPHILS % (AUTO) 0 % (0-10); EOSINOPHILS % (AUTO) 1 % (0-10); HEMATOCRIT 28 % (35-52); HEMOGLOBIN 9.4 G/DL (11.5-16.0); LYMPHOCYTES # (AUTO) 1.7 X 10^3 (1.0-4.0); LYMPHOCYTES % (AUTO) 28 % (12-44); MEAN CORPUSCULAR HEMOGLOBIN 27 PG (25-34); MEAN CORPUSCULAR HGB CONC 34 G/DL (32-36); MEAN CORPUSCULAR VOLUME 81 FL (80-99); MEAN PLATELET VOLUME 9.8 FL (7.4-10.4); MONOCYTES # (AUTO) 0.4 X 10^3 (0.0-1.0); MONOCYTES % (AUTO) 7 % (0-12); NEUTROPHILS # (AUTO) 3.8 X 10^3 (1.8-7.8); NEUTROPHILS % (AUTO) 64 % (42-75); PLATELET COUNT 248 10^3/uL (130-400); RED BLOOD COUNT 3.44 10^6/uL (4.35-5.85); RED CELL DISTRIBUTION WIDTH 12.7 % (10.0-14.5); WHITE BLOOD COUNT 5.9 10^3/uL (4.3-11.0)
[2018-01-01] MEDS ORDERED: metroNIDAZOLE 500MG/100ML IVPB 100 ML IV ONE (11:15)
[2018-01-01] MEDS ORDERED: AZITHROMYCIN INJECTION 500 MG in NS (IVPB) 250 ML IV ONE (11:15)
[2018-01-01 12:00] VITALS: BP 128/80
[2018-01-01] MEDS ORDERED: OXYTOCIN/NORMAL SALINE 1,000 ML IV ONE (12:02)
[2018-01-01] MEDS ORDERED: fentaNYL INJECTION 100 MCG/2 ML AMP ONE (12:02)
--- NOTE | 2018-01-01 12:04 | History & Physical ---
History and Physical Date Seen by Provider: Jan 01, 2018 Time Seen by Provider: 12:01 This patient is a 21-year-old white female with aN EDC of December putting her now at just past 38 weeks gestation. Her is complicated by polyhydramnios and her history includes a previous . She presents now for repeat delivery. Patient denies rupture membranes or bleeding. She has had a GBS culture done after 35 weeks gestation that was negative Allergies are to penicillin which causes swelling and sulfa drugs causes swelling causes a rash Medications are vitamins and LDA Medical social and surgical histories are per the antepartum record HEENT exam is normal Neck is supple no lymphadenopathy and no thyromegaly Abdomen is gravid soft nontender nondistended Extremities show no clubbing cyanosis. There is no Homans sign. Pelvic exam is deferred Laboratory Tests 01/01/18 10:59 monitor shows normal heart rate pattern with occasional contractions Assessment and plan term at 38 weeks gestation with previous C- section and with oligohydramnios admitted now for repeat delivery risk complication recovering follow-up have been fully discussed patient accepts those risks and is ready to proceed Allergies and Home Medications Allergies Coded Allergies: Sulfa (Sulfonamide Antibiotics) (Unverified Allergy, Severe, 01/15/10) Penicillins (Unverified Allergy, Mild, 06/25/09) clindamycin (Verified Allergy, Unknown, HIVES, 12/30/17) sulfamethoxazole (Unverified Allergy, Unknown, 12/30/17) trimethoprim (Unverified Allergy, Unknown, 12/30/17) Home Medications Pnv No.122/Iron/Folic Acid 1 Each Tablet, 1 EACH PO DAILY, (Reported) Patient Home Medication List Home Medication List Reviewed: Yes Clinical Quality Measures DVT/VTE Risk/Contraindication: Risk Factor Score Per Nursin RFS Level Per Nursing on Admit: 1=Low/No VTE PPX JOSE ALEJANDRO CRISTINA MD Jan 01, 2018 12:04 pm
[2018-01-01 12:10] VITALS: BP 118/84
[2018-01-01] MEDS ORDERED: LIDOCAINE PF 2% 2 ML (XYLOCAINE) VIAL ONE (12:55)
[2018-01-01] MEDS ORDERED: BUPIVACAINE SPINAL 0.75% (SENSORCAINE) 2 ML AMP ONE (12:55)
[2018-01-01 14:24] VITALS: BP 115/78
[2018-01-01] MEDS ORDERED: MEASLES,MUMPS,RUBELLA 1 EA INJ SC ONE (14:30)
[2018-01-01] MEDS ORDERED: ONDANSETRON 4 MG/2 ML (SDV) Z0FRAN IVP PRN (14:30)
[2018-01-01] MEDS ORDERED: MEPERIDINE (DEMEROL) INJ 100 MG/ML IM PRN (14:30)
[2018-01-01] MEDS ORDERED: PROMETHAZINE INJ 25 MG/ML (PHENERGAN) AMP IM PRN (14:30)
[2018-01-01] MEDS ORDERED: TETANUS,DIPTH,PERTUSS P/F (BOOSTRIX) 0.5 ML VIAL IM ONE (14:30)
[2018-01-01] MEDS ORDERED: D5 LR IV SOLUTION 1,000 ML IV ONE (14:33)
[2018-01-01] MEDS: OXYTOCIN/NORMAL SALINE 500 ML IV SCH ×2 (14:40→19:30)
[2018-01-01] MEDS: KETOROLAC 30 MG/ML VIAL IVP SCH ×2 (14:44→20:34)
[2018-01-01] MEDS: oxyCODONE/APAP 10/325MG (PERCOCET 10) TABLET PO PRN ×2 (16:52→22:51)
[2018-01-01 16:53] VITALS: BP 117/77
[2018-01-01 20:30] VITALS: BP 109/73
[2018-01-01] MEDS: DOCUSATE SODIUM 100 MG (COLACE) CAP PO SCH (20:31)
--- NOTE | 2018-01-01 20:43 | OPERATIVE REPORT ---
DATE OF SERVICE: 01/01/2018 PREOPERATIVE DIAGNOSIS: Term with oligohydramnios and previous section. POSTOPERATIVE DIAGNOSIS: Term with oligohydramnios and previous section. OPERATIVE PROCEDURE: Repeat low transverse delivery of a viable female infant with Apgars of 8 and 8 at 1 and 5 minutes. WEIGHT IS PENDING and a cord blood pH was 7.35. OPERATIVE DESCRIPTION: With the patient in the supine position under satisfactory spinal analgesia, the patient was prepped and draped in usual fashion for abdominal surgery. Garcia catheter was placed in the urinary bladder. A repeat Pfannenstiel incision was made through the skin with a scalpel by removing the patient's previous Pfannenstiel incisional scar. The abdomen was then entered in the usual manner. Bladder retractor was placed into position and clean scalpel was used to make a 4 cm hysterotomy incision transversely across the lower uterine segment. That was extended by blunt dissection as well, releasing copious clear fluid. A vigorous viable female infant was delivered via the uterine incision. had Apgars of 8 and 8 at 1 and 5 minutes. Expected weight is pending at this time and cord blood and cord blood gas were as noted above. The umbilical cord was doubly clamped and cut and the passed to the pediatric nurse in attendance for delivery. Placenta delivered spontaneously [place]. It was normal with a 3-vessel cord. The uterus was exteriorized and interior was wiped clean with a wet laparotomy sponge. Uterine incision was then closed with a running locked suture of 2-0 Vicryl. Hemostasis was complete. The uterus was returned to the abdominal cavity. All blood clot and debris removed in the abdominal cavity. Sponge and needle counts were correct, hemostasis assured. The anterior parietal peritoneum was closed with a running suture of 2-0 Vicryl. Rectus muscles were closed with that suture as well. The rectus fascia was closed with 2-0 Vicryl, subcutaneous tissue with 2-0 Vicryl and the skin was stapled. Sponge and needle counts were correct at the end of procedure. Estimated blood loss for the procedure was around 500 mL. The patient tolerated the procedure well and was transferred to the recovery room in stable condition. The infant had been taken stable to the full term nursery under the care of the pediatric nurse. Job ID: [id number] DocumentID: [id number] Dictated Date: 01/01/2018 13:09:18 Outbound Sales Advisor Date: 01/01/2018 20:43:05 Dictated By: JOSE ALEJANDRO CRISTINA MD MTDD
[2018-01-02 00:20] VITALS: BP 105/70
[2018-01-02] MEDS: KETOROLAC 30 MG/ML VIAL IVP SCH ×2 (02:20→10:31)
[2018-01-02 04:15] VITALS: BP 117/73
[2018-01-02] MEDS: oxyCODONE/APAP 10/325MG (PERCOCET 10) TABLET PO PRN ×3 (06:04→17:33)
--- NOTE | 2018-01-02 07:59 | Progress Note-Standard ---
Standard Progress Note Progress Notes/Assess & Plan Date Seen by Provider: Jan 02, 2018 Time Seen by Provider: 07:58 Progress/Assessment & Plan This patient is without complaint. She is ambulating, voiding, tolerating oral intake well, has good pain control. Patient denies chest pain, denies shortness breath, denies nausea vomiting, denies headache. Vital Signs 01/02/18 04:15 Temp 97.8 Pulse 79 Resp 20 B/P (MAP) 117/73 (88) Pulse Ox 100 O2 Delivery Room Air Vital signs are stable patient is afebrile Fundus is firm below the umbilicus and nontender. Incision is clean dry and intact. Extremities show no clubbing cyanosis. There is no Homans sign. Assessment and plan postoperative day number 1 status post repeat doing well. Plan is for routine convalescence care. JOSE ALEJANDRO CRISTINA MD Jan 02, 2018 7:59 am
[2018-01-02 09:11] VITALS: BP 118/72
[2018-01-02] MEDS: DOCUSATE SODIUM 100 MG (COLACE) CAP PO SCH ×2 (10:30→21:51)
--- NOTE | 2018-01-02 13:41 | Anesthesia-Regional Post-Op ---
Regional Patient Condition Mental Status: Alert, Oriented x3 Circulation: Same as Pre-Op Headache: Absent Sensation: Full Recovery Motor Block: Absent Post Op Complications Complications None Follow Up Care/Instructions Patient Instructions None needed. Anesthesia/Patient Condition Patient is doing well, no complaints, stable vital signs, no apparent adverse anesthesia problems. No complications reported per nursing. SORAYA PINTO CRNA Jan 02, 2018 13:41
[2018-01-02 14:20] VITALS: BP 130/87
[2018-01-02] MEDS: IBUPROFEN 800 MG (MOTRIN) TAB PO SCH (17:34)
[2018-01-02 20:00] VITALS: BP 127/81
[2018-01-03 00:10] VITALS: BP 120/71
[2018-01-03] MEDS: IBUPROFEN 800 MG (MOTRIN) TAB PO SCH ×3 (00:10→19:25)
[2018-01-03] MEDS: oxyCODONE/APAP 10/325MG (PERCOCET 10) TABLET PO PRN ×5 (00:47→22:50)
[2018-01-03 05:50] VITALS: BP 128/82
[2018-01-03] MEDS ORDERED: OXYC1TAB12 PO (07:39)
[2018-01-03] MEDS ORDERED: IBUP-1780 PO (07:39)
[2018-01-03] MEDS ORDERED: DOCU100C37 PO (07:39)
--- NOTE | 2018-01-03 07:40 | Discharge Instructions ---
Discharge Instructions Discharge Medications New, Converted or Re-Newed RX: RX on Chart Patient Instructions Patient Instructions: As directed Return to The Hospital For: As directed Activity & Diet Discharge Diet: No Restrictions Activity as Tolerated: No Orders-Post D/C & Referrals Follow Up Appt: RTC 1 week for incision check. Call to make follow up appt. for patient in 4 weeks. Wound Care: Remove [place], apply benzoin and steri strips. Activity Per routine post instructions. Please call in RX to patient pharmacy. Diet as tolerated Patient may shower or tub bathe as desired. Continue home meds JOSE ALEJANDRO CRISTINA MD Jan 03, 2018 7:40 am
--- NOTE | 2018-01-03 07:42 | Progress Note-Standard ---
Standard Progress Note Progress Notes/Assess & Plan Date Seen by Provider: Jan 03, 2018 Time Seen by Provider: 07:41 Progress/Assessment & Plan This patient is without complaint. She is ambulating, voiding, tolerating oral intake well, has good pain control. Patient denies chest pain, denies shortness breath, denies nausea vomiting, denies headache. Vital Signs 01/02/18 04:15 Temp 97.8 Pulse 79 Resp 20 B/P (MAP) 117/73 (88) Pulse Ox 100 O2 Delivery Room Air Vital signs are stable patient is afebrile Fundus is firm below the umbilicus and nontender. Incision is clean dry and intact. Extremities show no clubbing cyanosis. There is no Homans sign. Assessment and plan postoperative day number 1 status post repeat doing well. Plan is for routine convalescence care. January 03, 2018 This patient is without complaint. She is ambulating, voiding, tolerating oral intake well, has good pain control. Patient denies chest pain, denies shortness breath, denies nausea vomiting, and denies headache. Vital Signs 01/02/18 01/03/18 14:20 05:50 Temp 98.0 Pulse 85 Resp 18 B/P (MAP) 128/82 (97) Pulse Ox 98 O2 Delivery Room Air Vital signs are stable. Patient is afebrile. Fundus is firm below the umbilicus and nontender. The incision is clean dry and intact. There is some edy-incisional ecchymosis that does appear to be normal. Extremities show no clubbing cyanosis. There is no Homans sign. There is some pretibial pitting edema that is within the normal range. Assessment and plan post operative day number 2 status post repeat delivery doing well. Plan is to continue routine convalescence. JOSE ALEJANDRO CRISTINA MD Jan 03, 2018 7:42 am
[2018-01-03] MEDS: DOCUSATE SODIUM 100 MG (COLACE) CAP PO SCH ×2 (09:25→19:25)
[2018-01-03 11:45] VITALS: BP 113/73
[2018-01-03 19:25] VITALS: BP 116/73
[2018-01-04 00:30] VITALS: BP 121/70
[2018-01-04] MEDS: IBUPROFEN 800 MG (MOTRIN) TAB PO SCH ×3 (00:31→11:33)
[2018-01-04 06:10] VITALS: BP 125/78
[2018-01-04] MEDS: oxyCODONE/APAP 10/325MG (PERCOCET 10) TABLET PO PRN ×2 (07:19→11:32)
--- NOTE | 2018-01-04 07:50 | Discharge Summary ---
Discharge Summary Term repeat delivery This patient is a 22-year-old white female who was admitted at 38+ weeks gestation secondary to have normal amniotic fluid levels for repeat delivery. She underwent repeat on January 01, 2018. That procedure was uncomplicated patient recovered uneventfully. On postoperative day number 1/January 02, 2018 patient was ambulating, voiding , tolerating oral intake well had good pain control. She was stable through the day and had routine convalescence care through the day. On postoperative day number 2/January 03, 2018 patient was unchanged. Now on postoperative day number 3 patient is ambulating, voiding, tolerating oral intake well has good pain control and is ready for discharge home. Physical diagnoses for this hospitalization is term repeat delivery Secondary diagnoses are previous delivery, polyhydramnios, 38 week gestation Operation procedures include monitoring, spinal analgesia, repeat delivery Patient was given appropriate discharge instructions verbally and writing and a copy those were placed in chart. Discharge medications are Percocet and Motrin and Colace patient is continue her own preoperative medications Clinical Quality Measures DVT/VTE Risk/Contraindication: Risk Factor Score Per Nursin RFS Level Per Nursing on Admit: 1=Low/No VTE PPX JOSE ALEJANDRO CRISTINA MD Jan 04, 2018 7:50 am
[2018-01-04] MEDS ORDERED: OXYC-465 PO (07:53)
--- NOTE | 2018-01-04 07:59 | Progress Note-Standard ---
Standard Progress Note Progress Notes/Assess & Plan Date Seen by Provider: Jan 04, 2018 Time Seen by Provider: 07:57 Progress/Assessment & Plan This patient is without complaint. She is ambulating, voiding, tolerating oral intake well, has good pain control. Patient denies chest pain, denies shortness breath, denies nausea vomiting, denies headache. Vital Signs 01/02/18 04:15 Temp 97.8 Pulse 79 Resp 20 B/P (MAP) 117/73 (88) Pulse Ox 100 O2 Delivery Room Air Vital signs are stable patient is afebrile Fundus is firm below the umbilicus and nontender. Incision is clean dry and intact. Extremities show no clubbing cyanosis. There is no Homans sign. Assessment and plan postoperative day number 1 status post repeat doing well. Plan is for routine convalescence care. January 03, 2018 This patient is without complaint. She is ambulating, voiding, tolerating oral intake well, has good pain control. Patient denies chest pain, denies shortness breath, denies nausea vomiting, and denies headache. Vital Signs 01/02/18 01/03/18 14:20 05:50 Temp 98.0 Pulse 85 Resp 18 B/P (MAP) 128/82 (97) Pulse Ox 98 O2 Delivery Room Air Vital signs are stable. Patient is afebrile. Fundus is firm below the umbilicus and nontender. The incision is clean dry and intact. There is some edy-incisional ecchymosis that does appear to be normal. Extremities show no clubbing cyanosis. There is no Homans sign. There is some pretibial pitting edema that is within the normal range. Assessment and plan post operative day number 2 status post repeat delivery doing well. Plan is to continue routine convalescence. 2017 Patient is without complaint. She is ambulating, voiding, tolerating oral intake well and has good pain control. She is ready for discharge Vital Signs 01/03/18 01/04/18 11:45 06:10 Temp 98.4 Pulse 89 Resp 18 B/P (MAP) 125/78 (94) Pulse Ox 99 O2 Delivery Room Air Vital signs are stable. Patient is afebrile. Fundus is firm below the umbilicus and nontender. The surgical incision is clean dry and intact Extreme show no clubbing cyanosis. There is no Homans sign. Assessment and plan post operative day number 3 status post term repeat delivery. Plan is for discharge home Final Diagnosis 38 week repeat JOSE ALEJANDRO CRISTINA MD Jan 04, 2018 7:59 am
[2018-01-04 10:30] VITALS: BP 125/78
[2018-01-04] MEDS: DOCUSATE SODIUM 100 MG (COLACE) CAP PO SCH (11:33)
== END 2018-01-04 11:35 | disposition home or self-care (01) | DRG 766 ==
LOC: LDRP 10:20 → EEVIPCON 13:00 → LDRP 14:44
PROVIDERS: ADMIT Obstetrics & Gynecology; ATTEND Obstetrics & Gynecology
PROC: 10D00Z1 Extraction of Products of Conception, Low, Open Approach (ICD-10-PCS; principal; 2018-01-01 12:19)
DX: O41.03X0 Oligohydramnios, third trimester, not applicable or unspecified (principal); O34.211 Maternal care for low transverse scar from previous cesarean delivery; Z3A.38 38 weeks gestation of pregnancy; Z37.0 Single live birth
CPT/HCPCS: 36415; 83033; 85025; 86850; 86900; 86901; 88307; 94664

== ENCOUNTER 2018-05-19 05:49 | Outpatient (CLI) | payer BC, MEDICAID ==
[~2018-05-19] VITALS: Ht 156.2 cm; Wt 54.9 kg
[~2018-05-19 05:49] MED LIST changes: +DOCU100C37 PO; +IBUP-1780 PO; +OXYC-465 PO; +OXYC1TAB12 PO
== END 2018-05-19 13:49 | disposition home or self-care (01) ==
LOC: PREOP 05:49
PROVIDERS: ATTEND Obstetrics & Gynecology
DX: Z01.818 Encounter for other preprocedural examination (principal)

== ENCOUNTER 2018-08-06 05:47 | Outpatient (CLI) | payer BC, MEDICAID ==
[~2018-08-06] VITALS: Ht 156.2 cm; Wt 50.8 kg
[2018-08-07] MEDS ORDERED: HYDR-34 PO (11:39)
== END 2018-08-06 08:50 | disposition home or self-care (01) ==
LOC: PREOP 05:47
PROVIDERS: ATTEND Surgery
DX: Z01.818 Encounter for other preprocedural examination (principal)

== ENCOUNTER 2018-08-07 11:13 | Day surgery (SDC) | payer BC, MEDICAID ==
[~2018-08-07] VITALS: Ht 156.2 cm; Wt 50.8 kg
--- OUTSIDE RECORDS SUMMARY | 2018-08-07 11:17 | XMS REPORT ---
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 532978465 Problem Bipolar affective disorder, currently depressed, mild F31.31 Active 889505259 Problem Acute sinusitis, unspecified 461.9 Active 61450070 Problem Other mental disorders complicating the puerperium O99.345 Active 52769309 ALLERGIES No Information ENCOUNTERS Encounter Location Date Diagnosis [place] [id number] [place] [address] 56249- 1350 May, Bipolar affective disorder, currently depressed, mild F31.31 [place] [id number] [place] [address] 85883- 0675 Apr, Bipolar affective disorder, depressed, severe, with psychotic behavior F31.5 [place] [id number] [place] [address] 72223- 2984 Apr, Bipolar affective disorder, depressed, severe, with psychotic behavior F31.5 [place] [id number] [place] [address] 74765- 6419 18 Apr, 2018 [place] [address] [address]- [address]64 17 Apr, 2018 Bipolar affective disorder, currently depressed, mild F31.31 [place] [address] 75343- 2192 14 Apr, 2018 Bipolar affective disorder, depressed, severe, with psychotic behavior F31.5 [place] [id number] [place] [address] 99861- 2712 Apr, Bipolar affective disorder, depressed, severe, with psychotic behavior F31.5 [facility] [address] [place] [address] 24881- 7053 Mar, Bipolar affective disorder, depressed, severe, with psychotic behavior F31.5 [facility] [address] [place] [address] 41694- 3818 Mar, Bipolar affective disorder, depressed, severe, with psychotic behavior F31.5 and Other mental disorders complicating the puerperium O99.345 [facility] [id number] [place] [address] 94407- 7313 13 Mar, 2018 [facility] [id number] [place] [address] 38227- 3518 Mar, Bipolar affective disorder, depressed, severe, with psychotic behavior F31.5 ; 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 and Other mental disorders complicating the puerperium O99.345 [facility] [id number] [place] [address] 28626- 0217 Mar, Bipolar affective disorder, depressed, severe, with psychotic behavior F31.5 [facility] [id number] [place] [address] 07132- 4099 Feb, Bipolar affective disorder, depressed, severe, with psychotic behavior F31.5 [facility] [id number] [place] [address] 15192- 1624 Feb, Bipolar affective disorder, depressed, severe, with psychotic behavior F31.5 [facility] [address] [place] [address] 97023- 5013 Feb, [facility] [id number] [place] [address] 95176- 7162 Feb, Bipolar disorder, current episode depressed, severe, with psychotic features F31.5 [facility] [address] [place] [address] 98377- 4401 Feb, Unspecified mood [affective] disorder F39 [facility] [id number] [place] [address] 14652- 3793 Jan, Unspecified mood [affective] disorder F39 [facility] [address] [facility] [id number], [place] [address] Jan, Depressive disorder, not elsewhere classified F32.9 [facility] [address] [facility] [id number], [place] [address] 9606 Dec, Unspecified mood [affective] disorder F39 [facility] [address] [facility] [id number] [place] [address] 47268- 5054 Dec, [facility] [address] [facility] [id number] [place] [address] 21543- 4027 Dec, Unspecified mood [affective] disorder F39 [facility] [address] [facility] [id number], [place] [address] 8481 Nov, Unspecified mood [affective] disorder F39 [facility] [address] [facility] [id number] [place] [address] 45784- 6059 Nov, Unspecified mood [affective] disorder F39 [facility] [address] [facility] [id number], [place] [address] 8555 Nov, Unspecified mood [affective] disorder [address] [place] [address] [address] [facility] [id number], [place] [address] 0064 Oct, Unspecified mood [affective] disorder [address] [place] [address] [address] [facility] [id number], [place] [address]- 3728 Oct, Unspecified mood [affective] disorder [address] [place] [address] [address] [facility] [id number], [place] [address]- 6962 Oct, Unspecified mood [affective] disorder [address] [facility] [id number], [place] [address]- 7735 Oct, Unspecified mood [affective] disorder [address] [facility] [id number], [place] [address]- 6530 Oct, Unspecified mood [affective] disorder [address] [facility] [id number], [place] [address]- 0943 Sep, Unspecified mood [affective] disorder [address] [place] [address] [address] [facility] [id number], [place] [address]- 6837 Sep, Unspecified mood [affective] disorder [address] [facility] [id number], [place] [address]- 9075 August, Unspecified mood [affective] disorder [address] [facility] [id number], [place] [address]- 1688 August, Unspecified mood [affective] disorder [address] [facility] [id number], [place] [address]- 9853 August, Unspecified mood [affective] disorder [address] [id number], [place] [address] 7490 August, Unspecified mood [affective] disorder [address] [facility] [id number], [place] [address]- 9887 Jul, Unspecified mood [affective] disorder [address] [facility] [id number], [place] [address]- 5773 Jul, Unspecified mood [affective] disorder [address] [id number], [place] [address] 4805 Jul, Unspecified mood [affective] disorder [address] [id number] [place] [address] Jul [facility] [address] [facility] [id number], [place] [address]- 6252 Jul, Unspecified mood [affective] disorder [address] [facility] [id number], [place] [address]- 2834 Jul, Unspecified mood [affective] disorder [address] [facility] [address] [facility] [id number] [id number] Nov, Dental examination Z01.20 [facility] [address]65[place], [place] [address] 7316 Jul, [facility] [address], [place] [address]- 2016 Jul, [facility] [address]65[address], [place] [address]- 1446 Jan, [facility] [address] [place] [address] 35483- 6596 Jan, [facility] [address] [place] [address] 58111- 7836 Dec, [facility] [address] [place] [address] 76276- 1056 Jan, [facility] [address] [place] [address] 29531- 5156 May, [facility] [address] [place] [address] 93412- 1026 Mar, [facility] [address] [place] [address] 91769- 8716 Mar, [facility] [address], [place] [address]- 8316 Mar, [facility] [address]65100[place], [place] [address]- 3276 Mar, [facility] [address], [place] [address]- 2876 Feb, IMMUNIZATIONS No Known Immunizations SOCIAL HISTORY Never Assessed REASON FOR VISIT [facility] [place] CARE VITAL SIGNS MEDICATIONS Medication Instructions Dosage Frequency Start Date End Date Duration Status Astepro 0.15 % (205.5 mcg) spray 2 sprays (411 mcg) in each nostril by intranasal route 2 times per day Dec, Active RESULTS No Results PROCEDURES No Known procedures INSTRUCTIONS MEDICATIONS ADMINISTERED No Known Medications MEDICAL (GENERAL) HISTORY Type Description Date Medical History pt is taking a cardiolepadopa Surgical History Surgical History breat augmentation Surgical History dental surgery Hospitalization History surgery
--- OUTSIDE RECORDS SUMMARY | 2018-08-07 11:17 | XMS REPORT ---
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 500205702 Problem Acute sinusitis, unspecified 461.9 Active 23640002 Problem Bipolar affective disorder, depressed, severe, with psychotic behavior F31.5 Active 121120344 Problem Unspecified mood [affective] disorder F39 Active 84559097 ALLERGIES No Information ENCOUNTERS Encounter Location Date Diagnosis [place] [address] [place] [address] 52673- 8013 Apr, [facility] [id number] [place] [address] 82411- 7458 Mar, [place] [id number] [place] [address] 49864- 5326 Mar, [facility] [address] [place] [address] 21896- 8126 Mar, [facility] [id number] [place] [address] 04931- 3698 Mar, [facility] [id number] [place] [address] 44010- 2179 Mar, [place] [id number] [place] [address] 81614- 8532 Mar, Bipolar affective disorder, depressed, severe, with psychotic behavior F31.5 ; 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 and Other mental disorders complicating the puerperium O99.345 [place] [address], [place] [address]- 0173 Mar, Bipolar affective disorder, depressed, severe, with psychotic behavior F31.5 [facility] [address] [place] [address] 04158- 2426 Feb, Bipolar affective disorder, depressed, severe, with psychotic behavior F31.5 [facility] [address] [place] [address] 94664- 9403 Feb, Bipolar affective disorder, depressed, severe, with psychotic behavior F31.5 [facility] [address], [place] [address]- 4417 Feb, [facility] [id number] [place] [address] 03733- 6107 Feb, Bipolar disorder, current episode depressed, severe, with psychotic features F31.5 [facility] [address] [place] [address] 80268- 5656 Feb, Unspecified mood [affective] disorder F39 [facility] [address] [place] [address] 18404- 5547 Jan, Unspecified mood [affective] disorder F39 [facility] [address] [place] [address] 47699- 5677 Jan, Depressive disorder, not elsewhere classified F32.9 [facility] [address] [place] [address] 33902- 0236 Dec, Unspecified mood [affective] disorder F39 [facility] [address] [address]- 5846 Dec, [facility] [id number] [place] [address] 93741- 4701 Dec, Unspecified mood [affective] disorder F39 [facility] [address], [place] [address]- 7544 Nov, Unspecified mood [affective] disorder F39 [facility] [address] [facility] [id number], [place] [address]- 2012 Nov, Unspecified mood [affective] disorder [address] [facility] [id number], [place] [address]- 6016 Nov, Unspecified mood [affective] disorder [address] [facility] [id number], [place] [address]- 7936 Oct, Unspecified mood [affective] disorder [address] [id number], [place] [address]- 6134 Oct, Unspecified mood [affective] disorder [address] [facility] [id number], [place] [address]- 4606 Oct, Unspecified mood [affective] disorder [address] [facility] [id number], [place] [address]- 0605 Oct, Unspecified mood [affective] disorder [address] [facility] [id number], [place] [address]- 4064 Oct, Unspecified mood [affective] disorder [address] [facility] [id number], [place] [address]- 1519 Sep, Unspecified mood [affective] disorder [address] [facility] [id number], [place] [address]- 3962 Sep, Unspecified mood [affective] disorder [address] [facility] [id number], [place] [address]- 2309 August, Unspecified mood [affective] disorder [address] [facility] [id number], [place] [address]- 8344 August, Unspecified mood [affective] disorder [address] [facility] [id number], [place] [address]- 6270 August, Unspecified mood [affective] disorder [address] [facility] [id number], [place] [address]- 5605 August, Unspecified mood [affective] disorder F39 [facility] [address] [facility] [id number], [place] [address]- 4847 Jul, Unspecified mood [affective] disorder F39 [facility] [id number], [place] [address]- 6110 Jul, Unspecified mood [affective] disorder F39 [facility] [address] [id number], [place] [address]- 7974 Jul, Unspecified mood [affective] disorder [address] [id number] [place] [address] Jul [facility] [address], [place] [address]- 8519 Jul, Unspecified mood [affective] disorder F39 [facility] [address], [place] [address]- 5557 Jul, Unspecified mood [affective] disorder F39 [facility] [address] [id number] [id number] Nov, Dental examination Z01.20 [facility] [address], [place] [address]- 4656 Jul, [facility] [address], [place] [address]- 0877 Jul, [facility] [address], [place] [address]- 0405 Jan, [facility] [address] [facility] [id number], [place] [address]- 7579 Jan, [facility] [id number], [place] [address]- 9047 Dec, [facility] [id number], [place] [address]- 8006 Jan, [facility] [id number] [address]- 6316 May, [facility] [id number], [place] [address]- 6190 Mar, [facility] [id number] 2949 Mar, [facility] [id number] 1095 Mar, [facility] [id number], [place] [address]- 2483 Mar, [facility] [id number], [place] [address]- 5154 Feb, IMMUNIZATIONS No Known Immunizations SOCIAL HISTORY Never Assessed REASON FOR VISIT f/u PLAN OF CARE Activity Details Follow Up 1 Week Reason:mood VITAL SIGNS MEDICATIONS Unknown Medications RESULTS No Results PROCEDURES Procedure Date Ordered Result Body Site Psychotherapy, patient and family, 45 minutes, established patient Apr 01, 2018 INSTRUCTIONS MEDICATIONS ADMINISTERED No Known Medications MEDICAL (GENERAL) HISTORY Type Description Date Medical History pt is taking a cardiolepadopa Surgical History Surgical History breat augmentation Surgical History dental surgery Hospitalization History surgery
--- OUTSIDE RECORDS SUMMARY | 2018-08-07 11:17 | XMS REPORT ---
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 667066336 Problem Acute sinusitis, unspecified 461.9 Active 10110855 Problem Bipolar affective disorder, depressed, severe, with psychotic behavior F31.5 Active 231186652 Problem Unspecified mood [affective] disorder F39 Active 24252107 ALLERGIES No Information ENCOUNTERS Encounter Location Date Diagnosis [place] [id number] [place] [address] 10839- 9351 Apr, [place] [address] [place] [id number] [place] [address] 46943- 5492 Mar, [place] [id number] [place] [address] 08477- 9072 Mar, [place] [id number] [place] [address] 44070- 9418 Mar, [place] [address] [id number] [place] [address] 59332- 2247 Mar, Bipolar affective disorder, depressed, severe, with psychotic behavior F31.5 ; 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 and Other mental disorders complicating the puerperium O99.345 [facility] [address] [place] [address] 57431- 5339 Mar, Bipolar affective disorder, depressed, severe, with psychotic behavior F31.5 [place] [id number] [place] [address] 20202- 3552 Feb, Bipolar affective disorder, depressed, severe, with psychotic behavior F31.5 [facility] [address] [place] [address] 06658- 4344 Feb, Bipolar affective disorder, depressed, severe, with psychotic behavior F31.5 [facility] [address] [address] 5609 Feb, [facility] [id number] [place] [address] 94844- 6382 Feb, Bipolar disorder, current episode depressed, severe, with psychotic features F31.5 [facility] [address] [place] [address] 54872- 1575 Feb, Unspecified mood [affective] disorder F39 [facility] [address] [place] [address] 91091- 5497 Jan, Unspecified mood [affective] disorder F39 [facility] [id number] [place] [address] 33552- 7888 Jan, Depressive disorder, not elsewhere classified F32.9 [facility] [address] [place] [address] 05020- 8752 Dec, Unspecified mood [affective] disorder F39 [facility] [address] [address]- 8897 Dec, [facility] [id number] [place] [address] 19290- 5762 Dec, Unspecified mood [affective] disorder F39 [facility] [address] [place] [address] 76887- 2992 Nov, Unspecified mood [affective] disorder F39 [facility] [address] [place] [address] 93448- 4398 Nov, Unspecified mood [affective] disorder F39 [facility] [id number] [place] [address] 33121- 8230 Nov, Unspecified mood [affective] disorder [address] [facility] [id number], [place] [address]- 8578 Oct, Unspecified mood [affective] disorder [address] [facility] [id number], [place] [address]- 4456 Oct, Unspecified mood [affective] disorder [address] [facility] [id number] [place] [address] 10167- 6817 Oct, Unspecified mood [affective] disorder [address] [facility] [id number], [place] [address]- 9204 Oct, Unspecified mood [affective] disorder [address] [facility] [id number], [place] [address]- 5694 Oct, Unspecified mood [affective] disorder [address] [facility] [id number], [place] [address]- 4209 Sep, Unspecified mood [affective] disorder [address] [facility] [id number], [place] [address]- 2067 Sep, Unspecified mood [affective] disorder [address] [facility] [id number], [place] [address]- 1475 August, Unspecified mood [affective] disorder [address] [facility] [id number], [place] [address]- 1745 August, Unspecified mood [affective] disorder [address] [facility] [id number], [place] [address]- 4140 August, Unspecified mood [affective] disorder [address] [facility] [id number][place] [address]- 5818 August, Unspecified mood [affective] disorder [address] [facility] [id number], [place] [address]- 2659 Jul, Unspecified mood [affective] disorder F39 [facility] [address] [facility] [id number], [place] [address]- 4143 Jul, Unspecified mood [affective] disorder F39 [facility] [address], [place] [address]- 7852 Jul, Unspecified mood [affective] disorder F[address] [id number] [place] [address] Jul [facility] [address] [place] [id number] [address]- 1588 Jul, Unspecified mood [affective] disorder F39 [facility] [address], [place] [address]- 4594 Jul, Unspecified mood [affective] disorder F39 [facility] [address] [id number] [address] Nov, Dental examination Z01.20 [facility] [address] [address]- 8779 Jul, [facility] [id number] [place] [address] 70264- 8791 Jul, [facility] [address] [address]- 2868 Jan, [facility] [address] [address]- 2360 Jan, [facility] [address], [place] [address]- 9000 Dec, [facility] [id number] [place] [address] 62741- 0697 Jan, [facility] [address], [place] [address]- 8552 May, [facility] [address], [place] [address]- 0460 Mar, [facility] [address] [facility] [id number] [place] [address]- 7706 Mar, [facility] [address] [facility] [id number], [place] [address]- 4086 Mar, [facility] [address] [facility] [id number], [place] [address]- 3436 Mar, [facility] [address] [facility] [id number], [place] [address]- 4942 Feb, IMMUNIZATIONS No Known Immunizations SOCIAL HISTORY Never Assessed REASON FOR VISIT appointment time PLAN OF CARE VITAL SIGNS MEDICATIONS Unknown Medications RESULTS No Results PROCEDURES No Known procedures INSTRUCTIONS MEDICATIONS ADMINISTERED No Known Medications MEDICAL (GENERAL) HISTORY Type Description Date Medical History pt is taking a cardiolepadopa Surgical History Surgical History breat augmentation Surgical History dental surgery Hospitalization History surgery
--- OUTSIDE RECORDS SUMMARY | 2018-08-07 11:17 | XMS REPORT ---
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 925193428 Problem Acute sinusitis, unspecified 461.9 Active 22676770 Problem Bipolar affective disorder, depressed, severe, with psychotic behavior F31.5 Active 389116452 Problem Unspecified mood [affective] disorder F39 Active 48727309 ALLERGIES No Information ENCOUNTERS Encounter Location Date Diagnosis [place] [id number] [place] [address] 35496- 8061 Apr, [place] [address] [place] [id number] [place] [address] 35309- 8366 Mar, [place] [address] [address] [id number] [place] [address] 22289- 4745 Mar, Bipolar affective disorder, depressed, severe, with psychotic behavior F31.5 and Other mental disorders complicating the puerperium O99.345 [facility] [address] [place] [address] 87232- 7502 Mar, [facility] [address] [place] [address] 23619- 1824 Mar, Bipolar affective disorder, depressed, severe, with psychotic behavior F31.5 ; 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 and Other mental disorders complicating the puerperium O99.345 [place] [address] [place] [address] 67261- 2118 Mar, Bipolar affective disorder, depressed, severe, with psychotic behavior F31.5 [facility] [address] [address]- 1937 Feb, Bipolar affective disorder, depressed, severe, with psychotic behavior F31.5 [facility] [address] [address]- 8256 Feb, Bipolar affective disorder, depressed, severe, with psychotic behavior F31.5 [facility] [address] [id number] [place] [address] 96286- 8190 Feb, [facility] [address] [address] [id number] [place] [address] 93870- 6197 Feb, Bipolar disorder, current episode depressed, severe, with psychotic features F31.5 [facility] [address] [place] [address] 37232- 2210 Feb, Unspecified mood [affective] disorder F39 [facility] [address] [id number] [place] [address] 37298- 6522 Jan, Unspecified mood [affective] disorder F39 [facility] [address] [address] [id number] [place] [address] 71560- 2004 Jan, Depressive disorder, not elsewhere classified F32.9 [facility] [address] [place] [address] 82984- 9208 Dec, Unspecified mood [affective] disorder F39 [facility] [address] [id number] [place] [address] 97995- 8015 Dec, [facility] [address] [place] [address] 94319- 1836 Dec, Unspecified mood [affective] disorder F39 [facility] [address] [address] [id number] [place] [address] 47503- 7020 Nov, Unspecified mood [affective] disorder F39 [facility] [address] [place] [address] 05179- 8474 Nov, Unspecified mood [affective] disorder [address] [place] [address] [address] [facility] [id number] [address]- 8561 Nov, Unspecified mood [affective] disorder [address] [place] [address] [address] [facility] [id number], [place] [address]- 6326 Oct, Unspecified mood [affective] disorder [address] [place] [id number] [address]- 2452 Oct, Unspecified mood [affective] disorder [address] [facility] [id number], [place] [address]- 1678 Oct, Unspecified mood [affective] disorder [address] [place] [id number] [address]- 8613 Oct, Unspecified mood [affective] disorder [address] [place] [id number] [address]- 8668 Oct, Unspecified mood [affective] disorder [address] [place] [id number] [address]- 3097 Sep, Unspecified mood [affective] disorder [address] [place] [id number] [address]- 4909 Sep, Unspecified mood [affective] disorder [address] [place] [id number] [address]- 4782 August, Unspecified mood [affective] disorder [address] [facility] [id number], [place] [address]- 3265 August, Unspecified mood [affective] disorder [address] [facility] [id number], [place] [address]- 0286 August, Unspecified mood [affective] disorder [address] [place] [id number] [address]- 1354 August, Unspecified mood [affective] disorder [address] [id number] [address]- 5366 Jul, Unspecified mood [affective] disorder F39 [facility] [address] [facility] [id number], [place] [address]- 4446 Jul, Unspecified mood [affective] disorder F39 [facility] [address] [facility] [id number], [place] [address]- 9234 Jul, Unspecified mood [affective] disorder F[address] [id number] [place] [address] Jul [facility] [address] [place] [id number] [address]- 1384 Jul, Unspecified mood [affective] disorder F39 [facility] [address] [place] [id number] [address]- 9587 Jul, Unspecified mood [affective] disorder F39 [facility] [address] [id number][place] [id number] Nov, Dental examination Z01.20 [facility] [address] [place] [address] 26134- 5072 Jul, [facility] [address] [place] [id number] [address]- 8829 Jul, [facility] [address] [address]- 4521 Jan, [facility] [address] [place] [address] [id number] [address]- 1017 Jan, [facility] [address] [place] [address] [id number] [place] [address] 91768- 1692 Dec, [facility] [address] [facility] [id number], [place] [address]- 3585 Jan, [facility] [address] [place] [address] [id number] [address]- 9205 May, [facility] [address] [facility] [id number] [place] [address]- 5382 Mar, [facility] [address] [facility] [id number][place] [address]- 0280 Mar, [facility] [address] [facility] [id number], [place] [address]- 3545 Mar, [facility] [address] [facility] [id number][place]- 3496 Mar, [facility] [address] [facility] [id number][place]- 2240 Feb, IMMUNIZATIONS No Known Immunizations SOCIAL HISTORY Never Assessed REASON FOR VISIT f/u, bipolar disorer / post- psychosis PLAN OF CARE Activity Details Follow Up 1 -2 Week Reason: VITAL SIGNS Height 61.5 in 2018-04-03 Weight 127 lbs 2018-04-03 Heart Rate 88 bpm 2018-04-03 Respiratory Rate 20 2018-04-03 BMI 23.61 kg/m2 2018-04-03 Blood pressure systolic 110 mmHg 2018-04-03 Blood pressure diastolic 70 mmHg 2018-04-03 MEDICATIONS Medication Instructions Dosage Frequency Start Date End Date Duration Status Aspirin Adult Low Dose 81 MG Orally Once a day 1 tablet 24h Not- Taking Vitamins 28-0.8 MG Orally Once a day 1 tablet 24h Not- Taking RESULTS No Results PROCEDURES No Known procedures INSTRUCTIONS MEDICATIONS ADMINISTERED No Known Medications MEDICAL (GENERAL) HISTORY Type Description Date Medical History pt is taking a cardiolepadopa Surgical History Surgical History breat augmentation Surgical History dental surgery Hospitalization History surgery
--- OUTSIDE RECORDS SUMMARY | 2018-08-07 11:17 | XMS REPORT ---
Author Author CORNELIA ROPER [facility] Address [address] [place] [address] Care Team Providers Care Candy Separator Enrobing Name Role Phone JUDSON CORNELIA Unavailable PROBLEMS Type Condition ICD9-CM Code MTG46-TX Code Onset Dates Condition Status SNOMED Code Problem Bipolar affective disorder, depressed, severe, with psychotic behavior F31.5 Active 769475296 Problem Unspecified mood [affective] disorder F39 Active 54247873 Problem Acute sinusitis, unspecified 461.9 Active 07217833 ALLERGIES No Information ENCOUNTERS Encounter Location Date Diagnosis [facility] [address] [place] [id number] [place] [address] 94457- 6135 Apr, [facility] [address] [id number] [place] [address] 84622- 3596 Mar, [facility] [id number] [place] [address] 85561- 9377 Mar, [facility] [id number] [place] [address] 76367- 5112 Mar, [facility] [address] [id number] [place] [address] 27574- 5336 Mar, [facility] [id number] [place] [address] 97571- 3953 Mar, [facility] [address] [id number] [place] [address] 15277- 0236 Feb, Bipolar affective disorder, depressed, severe, with psychotic behavior F31.5 [facility] [id number] [place] [address] 33277- 8128 Feb, Bipolar affective disorder, depressed, severe, with psychotic behavior F31.5 [facility] [address] [id number] [address]- 1640 Feb, [facility] [id number] [place] [address] 62200- 2335 Feb, Bipolar disorder, current episode depressed, severe, with psychotic features F31.5 [facility] [address], [place] [address]- 3593 Feb, Unspecified mood [affective] disorder F39 [facility] [id number] [place] [address] 58280- 2250 Jan, Unspecified mood [affective] disorder F39 [facility] [id number] [place] [address] 32701- 7637 Jan, Depressive disorder, not elsewhere classified F32.9 [facility] [address] [place] [address] 43256- 1548 Dec, Unspecified mood [affective] disorder F39 [facility] [id number] [place] [address] 85790- 7323 Dec, Unspecified mood [affective] disorder F39 [facility] [address] [place] [address] 42666- 0133 Dec, [facility] [address] [place] [address] 94472- 9945 Nov, Unspecified mood [affective] disorder F39 [facility] [address] [place] [address] 53093- 5433 Nov, Unspecified mood [affective] disorder F39 [facility] [address] [place] [address] 95334- 2738 Nov, Unspecified mood [affective] disorder F39 [facility] [address] [place] [address] 07076- 5571 Oct, Unspecified mood [affective] disorder F39 [facility] [address] [place] [address] 86381- 7494 Oct, Unspecified mood [affective] disorder [address] [facility] [id number], [place] [address]- 7988 Oct, Unspecified mood [affective] disorder [address] [facility] [id number], [place] [address]- 8612 Oct, Unspecified mood [affective] disorder [address] [facility] [id number], [place] [address]- 8990 Oct, Unspecified mood [affective] disorder [address] [id number], [place] [address]- 1554 Sep, Unspecified mood [affective] disorder [address] [facility] [id number], [place] [address]- 4979 Sep, Unspecified mood [affective] disorder [address] [facility] [id number], [place] [address]- 9601 August, Unspecified mood [affective] disorder [address] [facility] [id number], [place] [address]- 6323 August, Unspecified mood [affective] disorder [address] [facility] [id number], [place] [address]- 2856 August, Unspecified mood [affective] disorder [address] [facility] [id number], [place] [address]- 8811 August, Unspecified mood [affective] disorder [address] [id number], [place] [address]- 7059 Jul, Unspecified mood [affective] disorder [address] [facility] [id number], [place] [address]- 2956 Jul, Unspecified mood [affective] disorder [address] [facility] [id number], [place] [address]- 9826 Jul, Unspecified mood [affective] disorder [address] [id number] [place] [address] Jul [facility] [address], [place] [address]- 8304 Jul, Unspecified mood [affective] disorder F39 [facility] [address]100[place], [place] [address]- 8819 Jul, Unspecified mood [affective] disorder F39 [facility] [address] [id number] [address] Nov, Dental examination Z01.20 [facility] [address] [place] [address] 88280- 7903 Jul, [facility] [address] [place] [address] 76696- 3035 Jul, [facility] [id number] [place] [address] 53951- 8478 Jan, [facility] [address], [place] [address]- 0847 Jan, [facility] [address] [place] [address] 11403- 5936 Dec, [facility] [address], [place] [address]- 4125 Jan, [facility] [address], [place] [address]- 5548 May, [facility] [address] [id number], [place] [address]- 4828 Mar, [facility] [address] [place] [address] 71545- 7989 Mar, [facility] [address], [place] [address]- 5055 Mar, [facility] [address], [place] [address]- 5103 Mar, [facility] [address] [facility] [id number] [place] [address] 9608 Feb, IMMUNIZATIONS No Known Immunizations SOCIAL HISTORY Never Assessed REASON FOR VISIT Requests return call PLAN OF CARE VITAL SIGNS MEDICATIONS Unknown Medications RESULTS No Results PROCEDURES No Known procedures INSTRUCTIONS MEDICATIONS ADMINISTERED No Known Medications MEDICAL (GENERAL) HISTORY Type Description Date Medical History pt is taking a cardiolepadopa Surgical History Surgical History breat augmentation Surgical History dental surgery Hospitalization History surgery
--- OUTSIDE RECORDS SUMMARY | 2018-08-07 11:17 | XMS REPORT ---
Author Author KYLE MONAE Organization [facility] Address [address] [place] [address] Care Team Providers Care Blast Furnace Helper Name Role Phone KYLE MONAE Unavailable PROBLEMS Type Condition ICD9-CM Code [id number] Code Onset Dates Condition Status SNOMED Code Problem Bipolar affective disorder, depressed, severe, with psychotic behavior F31.5 Active 960556386 Problem Unspecified mood [affective] disorder F39 Active 77063553 Problem Acute sinusitis, unspecified 461.9 Active 00005338 ALLERGIES No Information ENCOUNTERS Encounter Location Date Diagnosis [facility] [id number] [place] [address] 73267- 8435 Apr, [facility] [id number] [place] [address] 40765- 7638 Mar, [facility] [id number] [place] [address] 12179- 1725 Mar, [facility] [id number] [place] [address] 16323- 5540 Mar, [facility] [id number] [place] [address] 17443- 7578 Mar, [facility] [id number] [place] [address] 76250- 5412 Mar, [facility] [id number] [place] [address] 49609- 3076 Feb, Bipolar affective disorder, depressed, severe, with psychotic behavior F31.5 [facility] [id number] [place] [address] 86198- 7012 Feb, Bipolar affective disorder, depressed, severe, with psychotic behavior F31.5 [facility] [id number] [place] [address] [place] [address]6 Feb, [facility] [id number] [place] [address] 33259- 7666 Feb, Bipolar disorder, current episode depressed, severe, with psychotic features F31.5 [facility] [address] [address] 5433 Feb, Unspecified mood [affective] disorder F39 [facility] [id number] [place] [address] 18434- 9070 Jan, Unspecified mood [affective] disorder F39 [facility] [id number] [place] [address] 28487- 5924 Jan, Depressive disorder, not elsewhere classified F32.9 [facility] [id number] [place] [address] 19958- 7170 Dec, Unspecified mood [affective] disorder F39 [facility] [id number] [place] [address] 55498- 6563 Dec, [facility] [id number] [place] [address] 21207- 2364 Dec, Unspecified mood [affective] disorder F39 [facility] [id number] [place] [address] 57733- 6711 Nov, Unspecified mood [affective] disorder F39 [facility] [id number] [place] [address] 30192- 9457 Nov, Unspecified mood [affective] disorder F39 [facility] [id number] [address]- 6583 Nov, Unspecified mood [affective] disorder F39 [facility] [id number] [place] [address] 95293- 3102 Oct, Unspecified mood [affective] disorder F39 [facility] [id number] [place] [address] 95869- 8372 Oct, Unspecified mood [affective] disorder [address] [facility] [id number] [address]- 8812 Oct, Unspecified mood [affective] disorder [address] [facility] [id number] [address]- 7255 Oct, Unspecified mood [affective] disorder [address] [facility] [id number] [address]- 6848 Oct, Unspecified mood [affective] disorder [address] [id number] [address]- 8046 Sep, Unspecified mood [affective] disorder [address] [facility] [id number] [place] [address] 83895- 5605 Sep, Unspecified mood [affective] disorder [address] [facility] [id number] [address]- 3948 August, Unspecified mood [affective] disorder [address] [facility] [id number] [address]- 7729 August, Unspecified mood [affective] disorder [address] [facility] [id number] [place] [address]- 6705 August, Unspecified mood [affective] disorder [address] [facility] [id number] [place] [address]- 6175 August, Unspecified mood [affective] disorder [address] [facility] [id number] [place] [address]- 0906 Jul, Unspecified mood [affective] disorder [address] [facility] [id number] [place] [address]- 4563 Jul, Unspecified mood [affective] disorder [address] [facility] [id number] [address]- 3422 Jul, Unspecified mood [affective] disorder [address] [id number] [place] [address] [facility] [address] [address]- 5380 Jul, Unspecified mood [affective] disorder F39 [facility] [address] [id number] [address]- 5633 Jul, Unspecified mood [affective] disorder F39 [facility] [address] [id number] [place] [id number] Nov, Dental examination Z01.20 [facility] [address] [place] [address] 34869- 9640 14 Jul, 2014 [facility] [address] [address] 1640 Jul, [facility] [address] [address] 0012 Jan, [facility] [address] [address]- 9784 Jan, [facility] [address] [address]- 6595 Dec, [facility] [address] [address]- 7300 Jan, [facility] [address] [address] 4595 May, [facility] [address] [address] 8231 Mar, [facility] [address] [address]- 7179 Mar, [facility] [address] [address]- 3674 Mar, [facility] [address] [address]- 3736 Mar, [facility] [address] [facility] [id number] [place] [address]- 0189 Feb, IMMUNIZATIONS No Known Immunizations SOCIAL HISTORY Never Assessed REASON FOR VISIT Crisis intervention. PLAN OF CARE Activity Details Follow Up 03-24-18 Reason: VITAL SIGNS MEDICATIONS Unknown Medications RESULTS No Results PROCEDURES Procedure Date Ordered Result Body Site Psychotherapy, patient &/family, 30 minutes, established patient Mar 20, 2018 INSTRUCTIONS MEDICATIONS ADMINISTERED No Known Medications MEDICAL (GENERAL) HISTORY Type Description Date Medical History pt is taking a cardiolepadopa Surgical History Surgical History breat augmentation Surgical History dental surgery Hospitalization History surgery
--- OUTSIDE RECORDS SUMMARY | 2018-08-07 11:18 | XMS REPORT ---
Author Author KYLE MONAE Organization [facility] Address [address] [place] [address] Care Team Providers Care Bench Machine Operator Name Role Phone KYLE MONAE Unavailable PROBLEMS Type Condition ICD9-CM Code JBM50-VO Code Onset Dates Condition Status SNOMED Code Problem Unspecified mood [affective] disorder F39 Active 98151673 Problem Acute sinusitis, unspecified 461.9 Active 11966419 ALLERGIES No Information ENCOUNTERS Encounter Location Date Diagnosis [facility] [id number] [place] [address] 82013- 3527 Jan, [facility] [id number] [place] [address] 81332- 0664 Jan, [facility] [id number] [place] [address] 00841- 0592 Dec, Unspecified mood [affective] disorder [id number] [place] [address] 78518- 0656 Dec, [facility] [id number] [place] [address] 63814- 8023 Dec, Unspecified mood [affective] disorder [address] [place] [address] [id number] [place] [address] 78616- 4643 Nov, Unspecified mood [affective] disorder [id number] [place] [address] 17725- 8124 Nov, Unspecified mood [affective] disorder [id number] [place] [address] 05028- 2552 Nov, Unspecified mood [affective] disorder [id number] [place] [address] 00993- 7597 Oct, Unspecified mood [affective] disorder [address] [facility] [id number] [address]- 5474 Oct, Unspecified mood [affective] disorder [address] [facility] [id number] [place] [address]- 6076 Oct, Unspecified mood [affective] disorder [address] [facility] [id number] [place] [address] 34607- 2387 Oct, Unspecified mood [affective] disorder [address] [facility] [id number] [place] [address] 74562- 7211 Oct, Unspecified mood [affective] disorder [address] [facility] [id number] [place] [address] 42849- 0250 Sep, Unspecified mood [affective] disorder [address] [facility] [id number] [place] [address] 09635- 6145 Sep, Unspecified mood [affective] disorder [address] [facility] [id number] [place] [address] 48275- 4628 August, Unspecified mood [affective] disorder [address] [facility] [id number] [place] [address]- 1655 August, Unspecified mood [affective] disorder [address] [facility] [id number] [place] [address]- 9287 August, Unspecified mood [affective] disorder [address] [facility] [id number] [address]- 8514 August, Unspecified mood [affective] disorder [address] [facility] [id number] [place] [address] 88608- 4932 Jul, Unspecified mood [affective] disorder [address] [facility] [id number] [place] [address] 25548- 1010 Jul, Unspecified mood [affective] disorder F39 [facility] [address] [id number] [place] [address]- 2626 Jul, Unspecified mood [affective] disorder [address] [facility] [address] [id number] [place] [address] Jul [facility] [address] [facility] [id number] [place] [address]- 5680 Jul, Unspecified mood [affective] disorder F39 [facility] [address] [id number] [address]- 4507 Jul, Unspecified mood [affective] disorder [address] [facility] [address] [id number] [place] [id number] Nov, Dental examination Z01.20 [facility] [address]00565100[place] [address]- 4803 Jul, [facility] [address]005[address]100[place] [address]- 8973 Jul, [facility] [address]005[address]100[place] [address]- 0666 Jan, [facility] [address] [id number] [address]- 1786 Jan, [facility] [address] [id number] [address]- 4832 Dec, [facility] [address] [facility] [id number] [address]- 6862 Jan, [facility] [address] [id number] [address]- 4941 May, [facility] [address] [facility] [id number] [place] 9876 Mar, [facility] [address] [id number] [address]- 1028 Mar, [facility] [address] [id number] [address]- 2546 Mar, [facility] [address] [facility] [id number] [place] [address]- 6812 Mar, [facility] [address] [facility] [id number] [place] [address]- 2456 Feb, IMMUNIZATIONS No Known Immunizations SOCIAL HISTORY Never Assessed REASON FOR VISIT f/u PLAN OF CARE Activity Details Follow Up 2 Weeks Reason:anxiety VITAL SIGNS MEDICATIONS Unknown Medications RESULTS No Results PROCEDURES Procedure Date Ordered Result Body Site Psychotherapy, patient &/family, 45 minutes, established patient Jan 16, 2018 INSTRUCTIONS MEDICATIONS ADMINISTERED No Known Medications MEDICAL (GENERAL) HISTORY Type Description Date Medical History pt is taking a cardiolepadopa Surgical History Surgical History breat augmentation Surgical History dental surgery Hospitalization History surgery
--- OUTSIDE RECORDS SUMMARY | 2018-08-07 11:18 | XMS REPORT ---
Author Author KYLE MONAE Organization [facility] Address [address] [place] [address] Care Team Providers Care Street Photographer Name Role Phone KYLE MONAE Unavailable PROBLEMS Type Condition ICD9-CM Code QLE54-QN Code Onset Dates Condition Status SNOMED Code Problem Unspecified mood [affective] disorder F39 Active 80233018 Problem Acute sinusitis, unspecified 461.9 Active 77070339 ALLERGIES No Information ENCOUNTERS Encounter Location Date Diagnosis [facility] [id number] [place] [address] 73768- 3103 Jan, [facility] [id number] [place] [address] 54767- 8839 Jan, [facility] [id number] [place] [address] 17693- 1569 Dec, Unspecified mood [affective] disorder [id number] [place] [address] 27317- 5957 Dec, [facility] [id number] [place] [address] 63641- 1978 Dec, Unspecified mood [affective] disorder [address] [place] [address] [id number] [place] [address] 31198- 7944 Nov, Unspecified mood [affective] disorder [id number] [place] [address] 19536- 0463 Nov, Unspecified mood [affective] disorder [id number] [place] [address] 97001- 8893 Nov, Unspecified mood [affective] disorder [id number] [place] [address] 81548- 9322 Oct, Unspecified mood [affective] disorder [address] [facility] [id number] [address]- 7701 Oct, Unspecified mood [affective] disorder [address] [facility] [id number], [place] [address]- 9736 Oct, Unspecified mood [affective] disorder [address] [facility] [id number] [place] [address] 50280- 0979 Oct, Unspecified mood [affective] disorder [address] [facility] [id number] [place] [address] 59144- 1125 Oct, Unspecified mood [affective] disorder [address] [facility] [id number] [place] [address] 65592- 3870 Sep, Unspecified mood [affective] disorder [address] [facility] [id number] [place] [address] 35219- 0475 Sep, Unspecified mood [affective] disorder [address] [facility] [id number] [place] [address] 02285- 2950 August, Unspecified mood [affective] disorder [address] [facility] [id number], [place] [address]- 0547 August, Unspecified mood [affective] disorder [address] [facility] [id number], [place] [address]- 9904 August, Unspecified mood [affective] disorder [address] [facility] [id number], [place] [address]- 4509 August, Unspecified mood [affective] disorder [address] [facility] [id number] [place] [address] 03214- 1871 Jul, Unspecified mood [affective] disorder [address] [facility] [id number] [place] [address] 60643- 8228 Jul, Unspecified mood [affective] disorder F39 [facility] [address] [id number], [place] [address]- 7204 Jul, Unspecified mood [affective] disorder F[address] [facility] [address] [id number] [place] [address] Jul [facility] [address] [facility] [id number], [place] [address]- 2287 Jul, Unspecified mood [affective] disorder F39 [facility] [address] [id number], [place] [address]- 2369 Jul, Unspecified mood [affective] disorder F[address] [facility] [address] [id number] [id number] Nov, Dental examination Z01.20 [facility] [address]00565100[place], [place] [address]- 2537 Jul, [facility] [address]005[address]100[place], [place] [address]- 8900 Jul, [facility] [address]00565100[place], [place] [address]- 7161 Jan, [facility] [address] [id number] [address]- 4087 Jan, [facility] [address] [id number] [address]- 1957 Dec, [facility] [address] [facility] [id number], [place] [address]- 4120 Jan, [facility] [address] [id number] [address]- 2079 May, [facility] [address] [facility] [id number] 7833 Mar, [facility] [address] [id number] [address]- 4822 Mar, [facility] [address] [id number] [address]- 4226 Mar, [facility] [address] [facility] [id number] [place] [address]- 5534 Mar, [facility] [address] [facility] [id number] [place] [address]- 1316 Feb, IMMUNIZATIONS No Known Immunizations SOCIAL HISTORY Never Assessed REASON FOR VISIT f/u PLAN OF CARE Activity Details Follow Up 2 Weeks Reason:mood VITAL SIGNS MEDICATIONS Unknown Medications RESULTS No Results PROCEDURES Procedure Date Ordered Result Body Site Psychotherapy, patient &/family, 45 minutes, established patient Dec 26, 2017 INSTRUCTIONS MEDICATIONS ADMINISTERED No Known Medications MEDICAL (GENERAL) HISTORY Type Description Date Medical History pt is taking a cardiolepadopa Surgical History Surgical History breat augmentation Surgical History dental surgery Hospitalization History surgery
--- OUTSIDE RECORDS SUMMARY | 2018-08-07 11:18 | XMS REPORT ---
Author Author KYLE MONAE Organization [facility] Address [address] [place] [address] Care Team Providers Care Pony Trimmer Name Role Phone KYLE MONAE Unavailable PROBLEMS Type Condition ICD9-CM Code PJE79-[id number] Code Onset Dates Condition Status SNOMED Code Problem Bipolar affective disorder, depressed, severe, with psychotic behavior F31.5 Active 322297288 Problem Unspecified mood [affective] disorder F39 Active 24805290 Problem Acute sinusitis, unspecified 461.9 Active [id number] ALLERGIES No Information ENCOUNTERS Encounter Location Date Diagnosis [facility] [id number] [place] [address] 70390- 9833 Apr, [facility] [id number] [place] [address] 74113- 2001 Mar, [facility] [id number] [place] [address] 82772- 2348 Mar, [facility] [id number] [place] [address] 86701- 8790 Mar, [facility] [id number] [place] [address] 68550- 3311 Mar, [facility] [id number] [place] [address] 35312- 8785 Mar, [facility] [id number] [place] [address] 38195- 5886 Mar, [facility] [id number] [place] [address] 74344- 9490 Feb, Bipolar affective disorder, depressed, severe, with psychotic behavior F31.5 [facility] [id number] [place] [address] 85572- 3374 Feb, Bipolar affective disorder, depressed, severe, with psychotic behavior F31.5 [facility] [address] [id number] [address]- 8900 Feb, [facility] [id number] [place] [address] 03631- 0940 Feb, Bipolar disorder, current episode depressed, severe, with psychotic features F31.5 [facility] [id number] [place] [address] 31195- 8273 Feb, Unspecified mood [affective] disorder F39 [facility] [id number] [place] [address] 05287- 2549 Jan, Unspecified mood [affective] disorder F39 [facility] [id number] [place] [address] 33847- 8571 Jan, Depressive disorder, not elsewhere classified F32.9 [facility] [id number] [place] [address] 34368- 3538 Dec, Unspecified mood [affective] disorder F39 [facility] [id number] [place] [address] 39232- 4392 Dec, Unspecified mood [affective] disorder F39 [facility] [id number] [place] [address] 60666- 9741 Dec, [facility] [id number] [place] [address] 39765- 9598 Nov, Unspecified mood [affective] disorder F39 [facility] [address] [id number] [address]- 7565 Nov, Unspecified mood [affective] disorder F39 [facility] [id number] [place] [address] 35752- 6946 Nov, Unspecified mood [affective] disorder F39 [facility] [address] [id number] [address]- 3134 Oct, Unspecified mood [affective] disorder F39 [facility] [address] [facility] [id number] [address]- 5045 Oct, Unspecified mood [affective] disorder [address] [facility] [id number] [address]- 7806 Oct, Unspecified mood [affective] disorder [address] [facility] [id number] [address]- 2406 Oct, Unspecified mood [affective] disorder [address] [id number] [address]- 2990 Oct, Unspecified mood [affective] disorder [address] [facility] [id number] [address]- 1775 Sep, Unspecified mood [affective] disorder [address] [facility] [id number] [address]- 6892 Sep, Unspecified mood [affective] disorder [address] [facility] [id number] [address]- 2437 August, Unspecified mood [affective] disorder [address] [facility] [id number] [address]- 2083 August, Unspecified mood [affective] disorder [address] [facility] [id number] [address]- 1258 August, Unspecified mood [affective] disorder [address] [facility] [id number] [address]- 2913 August, Unspecified mood [affective] disorder [address] [facility] [id number] [address]- 8474 Jul, Unspecified mood [affective] disorder [address] [facility] [id number] [address]- 5673 Jul, Unspecified mood [affective] disorder [address] [address]- 2090 Jul, Unspecified mood [affective] disorder F39 [facility] [id number] [place] [address] Jul [facility] [address] [id number] [address]- 7525 Jul, Unspecified mood [affective] disorder F39 [facility] [address] [address]- 1590 Jul, Unspecified mood [affective] disorder F39 [facility] [address] [id number] [address] Nov, Dental examination Z01.20 [facility] [address] [address]- 7495 Jul, [facility] [address] [address]- 9134 Jul, [facility] [address] [address]- 8916 Jan, [facility] [address] [address]- 9856 Jan, [facility] [address] [address]- 3556 Dec, [facility] [address] [address]- 2261 Jan, [facility] [address] [address]- 4472 May, [facility] [address] [id number] 2818 Mar, [facility] [address] [address]- 9478 Mar, [facility] [address] [id number] [address]- 7689 Mar, [facility] [address] [facility] [id number] [place] [address]- 2956 Mar, [facility] [address] [facility] [id number] [address]- 5109 Feb, IMMUNIZATIONS No Known Immunizations SOCIAL HISTORY Never Assessed REASON FOR VISIT f/u PLAN OF CARE Activity Details Follow Up 1 Week Reason:mood VITAL SIGNS MEDICATIONS Unknown Medications RESULTS No Results PROCEDURES Procedure Date Ordered Result Body Site Psychotherapy, patient and family, 45 minutes, established patient Mar 18, 2018 INSTRUCTIONS MEDICATIONS ADMINISTERED No Known Medications MEDICAL (GENERAL) HISTORY Type Description Date Medical History pt is taking a cardiolepadopa Surgical History Surgical History breat augmentation Surgical History dental surgery Hospitalization History surgery
--- OUTSIDE RECORDS SUMMARY | 2018-08-07 11:18 | XMS REPORT ---
Author Author KYLE MONAE Organization [facility] Address [address] [place] [address] Care Team Providers Care Marketing Communications Leader Name Role Phone KYLE MONAE Unavailable PROBLEMS Type Condition ICD9-CM Code BXR45-US Code Onset Dates Condition Status SNOMED Code Problem Unspecified mood [affective] disorder F39 Active 21270604 Problem Acute sinusitis, unspecified 461.9 Active [id number] ALLERGIES No Information ENCOUNTERS Encounter Location Date Diagnosis [facility] [id number] [place] [address] 03484- 8156 Apr, [facility] [id number] [place] [address] 44858- 4604 Feb, [facility] [id number] [place] [address] 01009- 0857 Feb, [facility] [id number] [place] [address] 76146- 9657 Jan, Unspecified mood [affective] disorder F39 [facility] [id number] [place] [address] 92898- 9151 Jan, Depressive disorder, not elsewhere classified F32.9 [facility] [id number] [place] [address] 03653- 4058 Dec, Unspecified mood [affective] disorder F39 [facility] [id number] [place] [address] 05127- 5237 Dec, [facility] [id number] [place] [address] 62248- 3316 Dec, Unspecified mood [affective] disorder F39 [facility] [id number] [place] [address] 69295- 9523 Nov, Unspecified mood [affective] disorder [address] [place] [address] [address] [facility] [id number] [address]- 3462 Nov, Unspecified mood [affective] disorder [address] [place] [address] [address] [facility] [id number] [address]- 5670 Nov, Unspecified mood [affective] disorder [address] [facility] [id number], [place] [address]- 8292 Oct, Unspecified mood [affective] disorder [address] [id number] [address]- 6898 Oct, Unspecified mood [affective] disorder [address] [facility] [id number] [address]- 2220 Oct, Unspecified mood [affective] disorder [address] [facility] [id number] [address]- 9519 Oct, Unspecified mood [affective] disorder [address] [facility] [id number] [address]- 6628 Oct, Unspecified mood [affective] disorder [address] [facility] [id number][place] [address]- 6285 Sep, Unspecified mood [affective] disorder [address] [facility] [id number], [place] [address]- 4542 Sep, Unspecified mood [affective] disorder [address] [facility] [id number] [address]- 6027 August, Unspecified mood [affective] disorder [address] [facility] [id number], [place] [address]- 1842 August, Unspecified mood [affective] disorder [address] [facility] [id number], [place] [address]- 6889 August, Unspecified mood [affective] disorder F39 [facility] [address] [id number], [place] [address]- 9394 August, Unspecified mood [affective] disorder F39 [facility] [address] [facility] [id number], [place] [address]- 2909 Jul, Unspecified mood [affective] disorder F39 [facility] [address] [id number], [place] [address]- 5827 Jul, Unspecified mood [affective] disorder F39 [facility] [address] [id number], [place] [address]- 8115 Jul, Unspecified mood [affective] disorder F[address] [id number] [place] [address] Jul [facility] [address] [id number], [place] [address]- 6500 Jul, Unspecified mood [affective] disorder F39 [facility] [address] [id number], [place] [address]- 8221 Jul, Unspecified mood [affective] disorder F39 [facility] [address] [id number][place] [address] Nov, Dental examination Z01.20 [facility] [address] [id number], [place] [address]- 3462 Jul, [facility] [address] [id number], [place] [address]- 5714 Jul, [facility] [address] [facility] [id number], [place] [address]- 8034 Jan, [facility] [address] [facility] [id number] [address]- 9298 Jan, [facility] [address] [facility] [id number], [place] [address]- 4641 Dec, [facility] [address]00565100[place], [place] [address]- 0527 Jan, [facility] [address] [facility] [id number] [address]- 0766 May, [facility] [address]00565100[place], [place] [address]- 8006 Mar, [facility] [address] [id number], [place] [address] 2546 Mar, [facility] [address]00565[address], [place] [address] 2546 Mar, [facility] [address] [id number], [place] [address]- 8351 Mar, [facility] [address] [id number], [place] [address]- 9106 Feb, IMMUNIZATIONS No Known Immunizations SOCIAL HISTORY Never Assessed REASON FOR VISIT f/u PLAN OF CARE Activity Details Follow Up Next available Reason:mood VITAL SIGNS MEDICATIONS Unknown Medications RESULTS No Results PROCEDURES Procedure Date Ordered Result Body Site Psychotherapy, patient &/family, 45 minutes, established patient Feb 17, 2018 INSTRUCTIONS MEDICATIONS ADMINISTERED No Known Medications MEDICAL (GENERAL) HISTORY Type Description Date Medical History pt is taking a cardiolepadopa Surgical History Surgical History breat augmentation Surgical History dental surgery Hospitalization History surgery
--- OUTSIDE RECORDS SUMMARY | 2018-08-07 11:18 | XMS REPORT ---
Author Author KYLE MONAE [facility] Address [address] [place] [address] Care Team Providers Care Material Inspector Name Role Phone KYLE MONAE Unavailable PROBLEMS Type Condition ICD9-CM Code SDF38-ZO Code Onset Dates Condition Status SNOMED Code Problem Unspecified mood [affective] disorder F39 Active 50054006 Problem Acute sinusitis, unspecified 461.9 Active 57764661 ALLERGIES No Information ENCOUNTERS Encounter Location Date Diagnosis [facility] [id number] [place] [address] 47916- 6364 Apr, [facility] [id number] [place] [address] 38867- 2114 Feb, [facility] [id number] [place] [address] 93742- 8725 Feb, [facility] [id number] [place] [address] 36224- 6166 Feb, [facility] [id number] [place] [address] 17712- 1423 Feb, [facility] [id number] [place] [address] 57477- 6485 Feb, [facility] [id number] [place] [address] 76234- 0744 Feb, Bipolar disorder, current episode depressed, severe, with psychotic features F31.5 [facility] [id number] [place] [address] 77032- 5728 Feb, Unspecified mood [affective] disorder F39 [facility] [id number] [place] [address] 73623- 3240 Jan, Unspecified mood [affective] disorder F39 [facility] [address] [facility] [id number], [place] [address]- 7311 Jan, Depressive disorder, not elsewhere classified F32.9 [facility] [address] [facility] [id number], [place] [address]- 6736 Dec, Unspecified mood [affective] disorder F39 [facility] [address] [facility] [id number][place] [address]- 2316 Dec, [facility] [address] [facility] [id number] [place] [address] 97108- 7174 Dec, Unspecified mood [affective] disorder F39 [facility] [address] [facility] [id number] [place] [address] 55861- 5131 Nov, Unspecified mood [affective] disorder F39 [facility] [address] [id number], [place] [address]- 2903 Nov, Unspecified mood [affective] disorder F39 [facility] [address] [id number], [place] [address]- 7322 Nov, Unspecified mood [affective] disorder [address] [place] [address] [address] [place] [address] 12643- 6997 Oct, Unspecified mood [affective] disorder [address] [place] [address] [address] [id number] [address]- 9682 Oct, Unspecified mood [affective] disorder [address] [place] [address] [address] [id number] [address]- 6289 Oct, Unspecified mood [affective] disorder [address] [place] [address] [address] [facility] [id number] [place] [address] 36538- 7410 Oct, Unspecified mood [affective] disorder [address] [place] [address] [address] [facility] [id number], [place] [address]- 5054 Oct, Unspecified mood [affective] disorder F39 [facility] [id number] [place] [address] 85281- 1285 Sep, Unspecified mood [affective] disorder F39 [facility] [address]00565100[place], [place] [address]- 3054 Sep, Unspecified mood [affective] disorder F39 [facility] [address] [id number] [address]- 6540 August, Unspecified mood [affective] disorder F39 [facility] [address] [place] [address] 51472- 8642 August, Unspecified mood [affective] disorder [address] [place] [address] [address] [place] [address] 48475- 3814 August, Unspecified mood [affective] disorder F39 [facility] [address] [place] [address] 54414- 3749 August, Unspecified mood [affective] disorder [address] [place] [address] [address] [place] [address] 47622- 8601 Jul, Unspecified mood [affective] disorder [address] [place] [address] [id number] [place] [address] 79337- 1401 Jul, Unspecified mood [affective] disorder [address] [place] [address] [address], [place] [address]- 5842 Jul, Unspecified mood [affective] disorder F[address] [id number] [place] [address] Jul [facility] [address] [id number] [address]- 9310 Jul, Unspecified mood [affective] disorder F39 [facility] [address] [id number] [address]- 4840 Jul, Unspecified mood [affective] disorder F39 [facility] [address] [id number] [address] Nov, Dental examination Z01.20 [facility] [address] [facility] [id number] [address]- 4416 14 Jul, 2014 [facility] [address] [facility] [id number], [place] [address]- 5876 Jul, [facility] [address] [facility] [id number], [place] [address]- 0586 Jan, [facility] [address] [facility] [id number], [place] [address] 2546 Jan, [facility] [address] [facility] [id number], [place] [address]- 0194 Dec, [facility] [address], [place] [address]- 8916 Jan, [facility] [address], [place] [address]- 3406 May, [facility] [address], [place] [address]- 8108 Mar, [facility] [address]- 2543 Mar, [facility] [address], [place] [address]- 7618 Mar, [facility] [address] [id number] [address]- 4055 Mar, [facility] [address] [id number], [place] [address]- 8992 Feb, IMMUNIZATIONS No Known Immunizations SOCIAL HISTORY Never Assessed REASON FOR VISIT f/u PLAN OF CARE Activity Details Follow Up 1 Week Reason:depression VITAL SIGNS MEDICATIONS Unknown Medications RESULTS No Results PROCEDURES Procedure Date Ordered Result Body Site Psychotherapy, patient &/family, 45 minutes, established patient Mar 03, 2018 INSTRUCTIONS MEDICATIONS ADMINISTERED No Known Medications MEDICAL (GENERAL) HISTORY Type Description Date Medical History pt is taking a cardiolepadopa Surgical History Surgical History breat augmentation Surgical History dental surgery Hospitalization History surgery
--- OUTSIDE RECORDS SUMMARY | 2018-08-07 11:18 | XMS REPORT ---
Author Author CORNELIA ROPER [facility] Address [address] [place] [address] Care Team Providers Care Applications Coordinator Name Role Phone PRICILLA ROPERA Unavailable PROBLEMS Type Condition ICD9-CM Code [id number] Code Onset Dates Condition Status SNOMED Code Problem Bipolar affective disorder, depressed, severe, with psychotic behavior F31.5 Active 549023701 Problem Unspecified mood [affective] disorder F39 Active 70944514 Problem Acute sinusitis, unspecified 461.9 Active 87687240 ALLERGIES Substance Reaction Event Type Date Status Clindamycin HCl rash Drug Allergy Feb, Active sulfa drugs anaphylaxis Non Drug Allergy Feb, Active penicillian rash Non Drug Allergy Feb, Active ENCOUNTERS Encounter Location Date Diagnosis [facility] [id number] [place] [address] 48844- 8361 Apr, [facility] [address] [address]- [address] Mar, [facility] [id number] [place] [address] 43203- 1426 Mar, [facility] [id number] [place] [address] 93302- 5521 Mar, [facility] [id number] [place] [address] 73789- 8612 Mar, [facility] [id number] [place] [address] 52947- 4520 Mar, [facility] [id number] [place] [address] 77339- 5667 Mar, [facility] [id number] [place] [address] 88820- 5184 Feb, Bipolar affective disorder, depressed, severe, with psychotic behavior F31.5 [facility] [id number] [address] 9901 Feb, Bipolar affective disorder, depressed, severe, with psychotic behavior F31.5 [facility] [address] [id number] [address] 6878 Feb, [facility] [id number] [place] [address] 07882- 9173 Feb, Bipolar disorder, current episode depressed, severe, with psychotic features F31.5 [facility] [address] [address] 6770 Feb, Unspecified mood [affective] disorder F39 [facility] [id number] [place] [address] 51720- 8681 Jan, Unspecified mood [affective] disorder F39 [facility] [id number] [place] [address] 79889- 4867 Jan, Depressive disorder, not elsewhere classified F32.9 [facility] [address] [address] 0397 Dec, Unspecified mood [affective] disorder F39 [facility] [id number] [address] 1236 Dec, Unspecified mood [affective] disorder F39 [facility] [address] [address] 9706 Dec, [facility] [id number] [place] [address] 37587- 3982 Nov, Unspecified mood [affective] disorder F39 [facility] [id number] [place] [address] 88629- 3104 Nov, Unspecified mood [affective] disorder F39 [facility] [id number] [address] 0048 Nov, Unspecified mood [affective] disorder F39 [facility] [address] [facility] [id number] [address] 8518 Oct, Unspecified mood [affective] disorder [address] [facility] [id number], [place] [address]- 9096 Oct, Unspecified mood [affective] disorder [address] [facility] [id number], [place] [address]- 7316 Oct, Unspecified mood [affective] disorder [address] [id number] [address]- 9061 Oct, Unspecified mood [affective] disorder [address] [facility] [id number], [place] [address]- 2076 Oct, Unspecified mood [affective] disorder [address] [facility] [id number] [address]- 0280 Sep, Unspecified mood [affective] disorder [address] [facility] [id number], [place] [address]- 6355 Sep, Unspecified mood [affective] disorder [address] [facility] [id number][place] [address]- 7437 August, Unspecified mood [affective] disorder [address] [facility] [id number][place] [address]- 9799 August, Unspecified mood [affective] disorder [address] [facility] [id number][place] [address]- 8471 August, Unspecified mood [affective] disorder [address] [facility] [id number][place] [address]- 4376 August, Unspecified mood [affective] disorder [address] [facility] [id number][place] [address]- 0695 Jul, Unspecified mood [affective] disorder [address], [place] [address]- 5652 Jul, Unspecified mood [affective] disorder F39 [facility] [address], [place] [address]- 1356 Jul, Unspecified mood [affective] disorder F[address] [facility] [place] [facility] [address] [id number] [place] [address] Jul [facility] [address], [place] [address]- 9177 Jul, Unspecified mood [affective] disorder F39 [facility] [address], [place] [address]- 4475 Jul, Unspecified mood [affective] disorder F39 [facility] [id number] [address] Nov, Dental examination Z01.20 [facility] [address], [place] [address]- 6184 Jul, [facility] [address] [address]- 8035 Jul, [facility] [address], [place] [address]- 5789 Jan, [facility] [address], [place] [address]- 7688 Jan, [facility] [address], [place] [address]- 7928 Dec, [facility] [address] [id number], [place] [address]- 8975 Jan, [facility] [address], [place] [address]- 0533 May, [facility] [address] [id number], [place] [address]- 3220 Mar, [facility] [address] [place] [address] 14332- 5415 Mar, [facility] [address] [facility] [id number] [place] [address]- 3246 Mar, [facility] [address] [facility] [id number], [place] [address]- 6806 Mar, [facility] [address] [facility] [id number] [place] [address]- 5341 Feb, IMMUNIZATIONS No Known Immunizations SOCIAL HISTORY Never Assessed REASON FOR VISIT f/u- terrell rivera, Mood / anxiety / trouble organizing her thoughts PLAN OF CARE Activity Details Follow Up 1 Week Reason: VITAL SIGNS Height 61.5 in 2018-03-04 Weight 136.2 lbs 2018-03-04 Heart Rate 96 bpm 2018-03-04 Respiratory Rate 20 2018-03-04 BMI 25.32 kg/m2 2018-03-04 Blood pressure systolic 116 mmHg 2018-03-04 Blood pressure diastolic 86 mmHg 2018-03-04 MEDICATIONS Medication Instructions Dosage Frequency Start Date [...]
--- OUTSIDE RECORDS SUMMARY | 2018-08-07 11:19 | XMS REPORT ---
Author Author KYLE MONAE Organization [facility] Address [address] [place] [address] Care Team Providers Care Audio Visual Equipment Rental Clerk Name Role Phone KYLE MONAE Unavailable PROBLEMS Type Condition ICD9-CM Code [id number] Code Onset Dates Condition Status SNOMED Code Problem Unspecified mood [affective] disorder F39 Active 15789960 Problem Acute sinusitis, unspecified 461.9 Active 49487879 ALLERGIES No Information ENCOUNTERS Encounter Location Date Diagnosis [facility] [id number] [place] [address] 17149- 9181 Jan, [facility] [id number] [place] [address] 18217- 3408 Jan, [facility] [id number] [place] [address] 31861- 2443 Dec, Unspecified mood [affective] disorder [id number] [place] [address] 28404- 5455 Dec, [facility] [id number] [place] [address] 42504- 6199 Dec, Unspecified mood [affective] disorder [address] [place] [address] [id number] [place] [address] 45294- 1676 Nov, Unspecified mood [affective] disorder [id number] [place] [address] 23544- 8874 Nov, Unspecified mood [affective] disorder [id number] [place] [address] 03904- 3406 Nov, Unspecified mood [affective] disorder [id number] [place] [address] 62232- 4473 Oct, Unspecified mood [affective] disorder [address] [facility] [id number] [address]- 9970 Oct, Unspecified mood [affective] disorder [address] [facility] [id number], [place] [address]- 4706 Oct, Unspecified mood [affective] disorder [address] [facility] [id number] [place] [address] 88619- 0694 Oct, Unspecified mood [affective] disorder [address] [facility] [id number] [place] [address] 57048- 7946 Oct, Unspecified mood [affective] disorder [address] [facility] [id number] [place] [address] 52814- 8370 Sep, Unspecified mood [affective] disorder [address] [facility] [id number] [place] [address] 88953- 8794 Sep, Unspecified mood [affective] disorder [address] [facility] [id number] [place] [address] 68517- 6283 August, Unspecified mood [affective] disorder [address] [facility] [id number] [address]- 8197 August, Unspecified mood [affective] disorder [address] [facility] [id number], [place] [address]- 6482 August, Unspecified mood [affective] disorder [address] [facility] [id number] [address]- 5558 August, Unspecified mood [affective] disorder [address] [facility] [id number] [place] [address] 75775- 2243 Jul, Unspecified mood [affective] disorder [address] [facility] [id number] [place] [address] 86658- 4661 Jul, Unspecified mood [affective] disorder F39 [facility] [address] [id number], [place] [address]- 0956 Jul, Unspecified mood [affective] disorder F39 [facility] [address] [id number] [place] [address] Jul [facility] [address] [facility] [id number], [place] [address]- 2503 Jul, Unspecified mood [affective] disorder F39 [facility] [address] [id number], [place] [address]- 2859 Jul, Unspecified mood [affective] disorder F39 [facility] [address] [id number] [id number] Nov, Dental examination Z01.20 [facility] [address]00565[address], [place] [address]- 7994 Jul, [facility] [address]00565100[place], [place] [address]- 6349 Jul, [facility] [address], [place] [address]- 7666 Jan, [facility] [address] [id number] [address]- 0922 Jan, [facility] [address] [id number], [place] [address]- 3465 Dec, [facility] [address] [facility] [id number] [address]- 0984 Jan, [facility] [address] [id number], [place] [address]- 6064 May, [facility] [address] [facility] [id number] 7761 Mar, [facility] [address] [id number], [place] [address]- 5543 Mar, [facility] [id number] [address]- 3736 Mar, [facility] [address] [facility] [id number] [place] [address]- 7405 Mar, [facility] [address] [facility] [id number] [place] [address]- 6529 Feb, IMMUNIZATIONS No Known Immunizations SOCIAL HISTORY Never Assessed REASON FOR VISIT f/u PLAN OF CARE Activity Details Follow Up Next available Reason:mood VITAL SIGNS MEDICATIONS Unknown Medications RESULTS No Results PROCEDURES Procedure Date Ordered Result Body Site Psychotherapy, patient &/family, 30 minutes, established patient Dec 20, 2017 INSTRUCTIONS MEDICATIONS ADMINISTERED No Known Medications MEDICAL (GENERAL) HISTORY Type Description Date Medical History pt is taking a cardiolepadopa Surgical History Surgical History breat augmentation Surgical History dental surgery Hospitalization History surgery
--- OUTSIDE RECORDS SUMMARY | 2018-08-07 11:19 | XMS REPORT ---
Author Author KYLE MONAE Organization [facility] Address [address] [place] [address] Care Team Providers Care Customer Service Administrator Name Role Phone KYLE MONAE Unavailable PROBLEMS Type Condition ICD9-CM Code [id number] Code Onset Dates Condition Status SNOMED Code Problem Unspecified mood [affective] disorder F39 Active 39851498 Problem Acute sinusitis, unspecified 461.9 Active 38574345 ALLERGIES No Information ENCOUNTERS Encounter Location Date Diagnosis [facility] [id number] [place] [address] 46095- 7936 Dec, [facility] [address] [address]- 1592 Dec, Unspecified mood [affective] disorder [id number] [place] [address] 55596- 2644 Dec, [facility] [id number] [place] [address] 93925- 3196 Nov, Unspecified mood [affective] disorder [id number] [place] [address] 89721- 6147 Nov, Unspecified mood [affective] disorder [id number] [place] [address] 00146- 6915 Nov, Unspecified mood [affective] disorder [id number] [place] [address] 29467- 5821 Oct, Unspecified mood [affective] disorder [id number] [place] [address] 22115- 1232 Oct, Unspecified mood [affective] disorder [address] [place] [address]- 5187 Oct, Unspecified mood [affective] disorder [address] [id number], [place] [address]- 8260 Oct, Unspecified mood [affective] disorder [address] [id number], [place] [address]- 9850 Oct, Unspecified mood [affective] disorder [address] [id number], [place] [address]- 9982 Sep, Unspecified mood [affective] disorder [id number] [place] [address] 53081- 5497 Sep, Unspecified mood [affective] disorder [address] [id number], [place] [address]- 4056 August, Unspecified mood [affective] disorder [address], [place] [address]- 5174 August, Unspecified mood [affective] disorder [address] [id number], [place] [address]- 5596 August, Unspecified mood [affective] disorder [address] [id number], [place] [address]- 8572 August, Unspecified mood [affective] disorder [address] [id number], [place] [address]- 2308 Jul, Unspecified mood [affective] disorder [address] [facility] [id number], [place] [address]- 6325 Jul, Unspecified mood [affective] disorder [address] [id number], [place] [address]- 7945 Jul, Unspecified mood [affective] disorder [address] [place] [address] [id number] [place] [address] Jul [facility] [address], [place] [address]- 3842 Jul, Unspecified mood [affective] disorder F39 [facility] [address], [place] [address]- 6482 Jul, Unspecified mood [affective] disorder F39 [facility] [address]005[address] [id number] Nov, Dental examination Z01.20 [facility] [id number] [place] [address] 96254- 8459 Jul, [facility] [id number] [place] [address] 58902- 1455 Jul, [facility] [id number] [place] [address] 49277- 8780 Jan, [facility] [id number] [place] [address] 07179- 6368 Jan, [facility] [id number] [place] [address] 91408- 2734 Dec, [facility] [id number] [place] [address] 06586- 7019 Jan, [facility] [address]00565100[place], [place] [address]- 8138 May, [facility] [id number] [place] [address] 65832- 9533 Mar, [facility] [address]005[address], [place] [address]- 7301 Mar, [facility] [id number] [place] [address] 67360- 1025 Mar, [facility] [address] 6948 Mar, [facility] [id number] [place] [address] [id number]- 9114 Feb, IMMUNIZATIONS No Known Immunizations SOCIAL HISTORY Never Assessed REASON FOR VISIT f/u PLAN OF CARE Activity Details Follow Up Next available Reason:mod VITAL SIGNS MEDICATIONS Unknown Medications RESULTS No Results PROCEDURES Procedure Date Ordered Result Body Site Psychotherapy, patient &/family, 30 minutes, established patient Dec 03, 2017 INSTRUCTIONS MEDICATIONS ADMINISTERED No Known Medications MEDICAL (GENERAL) HISTORY Type Description Date Medical History pt is taking a cardiolepadopa Surgical History Surgical History breat augmentation Surgical History dental surgery Hospitalization History surgery
--- OUTSIDE RECORDS SUMMARY | 2018-08-07 11:19 | XMS REPORT ---
Author Author KYLE MONAE Organization [facility] Address [address] [place] [address] Care Team Providers Care Air Conditioning Unit Tester Name Role Phone KYLE MONAE Unavailable PROBLEMS Type Condition ICD9-CM Code JER68-MM Code Onset Dates Condition Status SNOMED Code Problem Unspecified mood [affective] disorder F39 Active 56525673 Problem Acute sinusitis, unspecified 461.9 Active 10048966 ALLERGIES No Information ENCOUNTERS Encounter Location Date Diagnosis [facility] [id number] [place] [address] 34356- 7190 Dec, [facility] [id number] [place] [address] 61055- 0292 Dec, [facility] [id number] [place] [address] 33941- 1456 Dec, [facility] [id number] [place] [address] 94979- 6230 Dec, Unspecified mood [affective] disorder [address] [place] [address] [id number] [place] [address] 06271- 2065 Nov, Unspecified mood [affective] disorder F39 [facility] [id number] [place] [address] 32539- 0272 Nov, Unspecified mood [affective] disorder [id number] [place] [address] 76301- 8195 Nov, Unspecified mood [affective] disorder [id number] [place] [address] 09709- 4334 Oct, Unspecified mood [affective] disorder 9 [facility] [id number] [place] [address] 25124- 0469 Oct, Unspecified mood [affective] disorder [address] [facility] [id number], [place] [address] 6[address] Oct, Unspecified mood [affective] disorder [address] [facility] [id number], [place] [address] 4026 Oct, Unspecified mood [affective] disorder [address] [facility] [id number] [place] [address] 63876- 8803 Oct, Unspecified mood [affective] disorder [address] [facility] [id number] [place] [address] 77353- 9184 Sep, Unspecified mood [affective] disorder [address] [facility] [id number] [place] [address] 98769- 8701 Sep, Unspecified mood [affective] disorder [address] [facility] [id number] [place] [address] 00441- 5518 August, Unspecified mood [affective] disorder [address] [facility] [id number] [place] [address] 94073- 0340 August, Unspecified mood [affective] disorder [address] [facility] [id number], [place] [address] 0374 August, Unspecified mood [affective] disorder [address] [facility] [id number], [place] [address] 2339 August, Unspecified mood [affective] disorder [address] [facility] [id number], [place] [address]- 4453 Jul, Unspecified mood [affective] disorder [address] [facility] [id number] [place] [address] 80593- 0448 Jul, Unspecified mood [affective] disorder [address] [facility] [id number] [place] [address] 62475- 3053 Jul, Unspecified mood [affective] disorder F39 [facility] [address] [id number] [place] [address] Jul [facility] [address], [place] [address] 2726 Jul, Unspecified mood [affective] disorder F39 [facility] [address] [id number], [place] [address] 7901 Jul, Unspecified mood [affective] disorder F39 [facility] [address] [id number] [id number] Nov, Dental examination Z01.20 [facility] [id number] [place] [address] 60535- 9467 Jul, [facility] [address], [place] [address] 5406 Jul, [facility] [address], [place] [address] 0856 Jan, [facility] [address], [place] [address] 9139 Jan, [facility] [id number] [place] [address] 20486- 9853 Dec, [facility] [address], [place] [address] 3441 Jan, [facility] [address], [place] [address] 7885 May, [facility] [address] [id number], [place] [address] 3802 Mar, [facility] [address], [place] [address] 5687 Mar, [facility] [address] [id number], [place] [address] 1644 Mar, [facility] [address], [place] [address] 5806 Mar, [facility] [address] [facility] [id number] [place] [address]- 3726 Feb, IMMUNIZATIONS No Known Immunizations SOCIAL HISTORY Never Assessed REASON FOR VISIT f/u PLAN OF CARE Activity Details Follow Up Next available Reason:mood VITAL SIGNS MEDICATIONS Unknown Medications RESULTS No Results PROCEDURES Procedure Date Ordered Result Body Site Psychotherapy, patient &/family, 30 minutes, established patient Nov 25, 2017 INSTRUCTIONS MEDICATIONS ADMINISTERED No Known Medications MEDICAL (GENERAL) HISTORY Type Description Date Medical History pt is taking a cardiolepadopa Surgical History Surgical History breat augmentation Surgical History dental surgery Hospitalization History surgery
--- OUTSIDE RECORDS SUMMARY | 2018-08-07 11:19 | XMS REPORT ---
Author Author KYLE MONAE Organization [facility] Address [address] [place] [address] Care Team Providers Care Cardiology Tech Name Role Phone KYLE MONAE Unavailable PROBLEMS Type Condition ICD9-CM Code DIT64-XI Code Onset Dates Condition Status SNOMED Code Problem Unspecified mood [affective] disorder F39 Active 48659652 Problem Acute sinusitis, unspecified 461.9 Active [id number] ALLERGIES No Information ENCOUNTERS Encounter Location Date Diagnosis [facility] [id number] [place] [address] 87264- 8947 Dec, [facility] [id number] [place] [address] 09367- 2127 Dec, [facility] [id number] [place] [address] 58999- 7562 Dec, [facility] [id number] [place] [address] 93002- 3358 Dec, Unspecified mood [affective] disorder [address] [place] [address] [id number] [place] [address] 57763- 9278 Nov, Unspecified mood [affective] disorder F39 [facility] [id number] [place] [address] 72911- 6222 Nov, Unspecified mood [affective] disorder [id number] [place] [address] 93012- 7990 Nov, Unspecified mood [affective] disorder [id number] [place] [address] 06887- 2952 Oct, Unspecified mood [affective] disorder 9 [facility] [id number] [place] [address] 97296- 1702 Oct, Unspecified mood [affective] disorder [address] [facility] [id number], [place] [address]- 5433 Oct, Unspecified mood [affective] disorder [address] [facility] [id number], [place] [address]- 8516 Oct, Unspecified mood [affective] disorder [address] [facility] [id number] [place] [address] 87071- 6886 Oct, Unspecified mood [affective] disorder [address] [facility] [id number] [place] [address] 71715- 4226 Sep, Unspecified mood [affective] disorder [address] [facility] [id number] [place] [address] 06131- 7804 Sep, Unspecified mood [affective] disorder [address] [facility] [id number] [place] [address] 92626- 2838 August, Unspecified mood [affective] disorder [address] [facility] [id number] [place] [address] 46616- 6205 August, Unspecified mood [affective] disorder [address] [facility] [id number], [place] [address]- 8898 August, Unspecified mood [affective] disorder [address] [facility] [id number], [place] [address]- 8477 August, Unspecified mood [affective] disorder [address] [facility] [id number], [place] [address]- 0028 Jul, Unspecified mood [affective] disorder [address] [facility] [id number] [place] [address] 20872- 1619 Jul, Unspecified mood [affective] disorder [address] [facility] [id number] [place] [address] 00174- 9103 Jul, Unspecified mood [affective] disorder F39 [facility] [address] [id number] [place] [address] Jul [facility] [address], [place] [address]- 7291 Jul, Unspecified mood [affective] disorder F39 [facility] [address] [id number], [place] [address]- 9879 Jul, Unspecified mood [affective] disorder F39 [facility] [address] [id number] [id number] Nov, Dental examination Z01.20 [facility] [address] [place] [address] 95517- 7417 Jul, [facility] [address], [place] [address]- 2624 Jul, [facility] [address], [place] [address]- 1418 Jan, [facility] [address], [place] [address]- 0550 Jan, [facility] [address] [place] [address] 07243- 3033 Dec, [facility] [address], [place] [address]- 7064 Jan, [facility] [address], [place] [address]- 2387 May, [facility] [address] [id number], [place] [address]- 7894 Mar, [facility] [address], [place] [address]- 4039 Mar, [facility] [id number], [place] [address]- 6142 Mar, [facility] [address], [place] [address]- 9196 Mar, [facility] [address] [facility] [id number] [place] [address]- 7986 Feb, IMMUNIZATIONS No Known Immunizations SOCIAL HISTORY Never Assessed REASON FOR VISIT f/u PLAN OF CARE Activity Details Follow Up Next available Reason:mood VITAL SIGNS MEDICATIONS Unknown Medications RESULTS No Results PROCEDURES Procedure Date Ordered Result Body Site Psychotherapy, patient &/family, 45 minutes, established patient November 18, 2017 INSTRUCTIONS MEDICATIONS ADMINISTERED No Known Medications MEDICAL (GENERAL) HISTORY Type Description Date Medical History pt is taking a cardiolepadopa Surgical History Surgical History breat augmentation Surgical History dental surgery Hospitalization History surgery
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
[2018-08-07 11:35] VITALS: BP 116/77
[2018-08-07] MEDS: LACTATED RINGERS 1,000 ML IV PRN ×2 (11:35→15:30)
--- NOTE | 2018-08-07 11:38 | Progress Note-Pre Operative ---
Pre-Operative Progress Note H&P Reviewed The H&P was reviewed, patient examined and no changes noted. 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
[2018-08-07] MEDS ORDERED: HYDR-34 PO (11:39)
--- NOTE | 2018-08-07 11:40 | Discharge Inst-Surgical ---
D/C Lap Instructions-FLEXO New, Converted, or Re-Newed RX: RX on Chart Follow Up Appt in 2 weeks removing anal/rectal packing with first bowel movement. sitz bath QID Activity as tolerated No driving for 24 hours No [address] while on pain medications Incentive Spirometry use every 2 hours while awake Regular Diet Symptoms to Report: Fever over 101 degree F, Nausea/Vomiting Infection Signs and Symptoms to report: Increased redness, Foul odor of wound, Increased drainage Bathing instructions: May shower Operative Area Clean/Dry; Keep incision clean/dry If any problems/questions: Contact your physician or go to Emergency Room MICHELET HYDE MD Aug 07, 2018 11:40
[2018-08-07] MEDS ORDERED: ONDANSETRON 4 MG/2 ML (SDV) Z0FRAN IVP PRN ×2 (11:45→13:45)
[2018-08-07] MEDS ORDERED: LACTATED RINGERS 1,000 ML IV PRN (11:45)
[2018-08-07] MEDS ORDERED: oxyCODONE/APAP 5/325MG (PERCOCET 5) TABLET PO PRN (11:45)
[2018-08-07] MEDS ORDERED: ACETAMINOPHEN 325 MG TABLET PO PRN (11:45)
[2018-08-07] MEDS ORDERED: morphine INJ 10 MG/ML 1ML (SYR OR VIAL) IVP PRN (11:45)
[2018-08-07] MEDS ORDERED: BUP/EPI 0.5% 1:200,000 (SENSORCAINE) 30 ML VIAL ONE (12:42)
[2018-08-07] MEDS ORDERED: fentaNYL INJECTION 100 MCG/2 ML AMP ONE ×2 (13:28→14:37)
[2018-08-07] MEDS ORDERED: MIDAZOLAM 2 MG/2 ML (VERSED) VIAL ONE (13:28)
[2018-08-07] MEDS ORDERED: ONDANSETRON 4 MG/2 ML (SDV) Z0FRAN ONE (13:35)
[2018-08-07] MEDS ORDERED: DEXAMETHASONE 10 MG/ML (DECADRON) 1 ML VIAL ONE (13:35)
[2018-08-07] MEDS ORDERED: proPOfol 200 MG/20 ML (DIPRIVAN) VIAL IV ONE (13:35)
[2018-08-07] MEDS ORDERED: LIDOCAINE PF 2% 5 ML (XYLOCAINE) VIAL ONE (13:35)
[2018-08-07] MEDS ORDERED: morphine INJ 10 MG/ML 1ML (SYR OR VIAL) IVP ONE (13:45)
[2018-08-07] MEDS ORDERED: HYDROmorphone 2 MG/ML VIAL (DILAUDID) IV ONE (13:45)
[2018-08-07] MEDS ORDERED: LIDOCAINE/EPI 1%-1:100,000 (XYLOCAINE) 20ML ONE (13:56)
[2018-08-07] MEDS ORDERED: BUPIVACAINE 0.5% 30 ML (SENSORCAINE) VIAL ONE (13:56)
[2018-08-07] MEDS ORDERED: SEVOFLURANE (ULTANE) 15 ML INHAL SOLN ONE ×3 (14:11→14:47)
[2018-08-07] MEDS ORDERED: ceFAZolin INJECTION 1,000 MG VIAL IV ONE (14:15)
--- NOTE | 2018-08-07 14:52 | Progress Note-Post Operative ---
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 MICHELET HYDE MD Aug 07, 2018 14:52
--- NOTE | 2018-08-07 15:50 | Anesthesia-General Post-Op ---
General Patient Condition Mental Status/LOC: Same as Preop Cardiovascular: Satisfactory Nausea/Vomiting: Absent Respiratory: Satisfactory Pain: Controlled Complications: Absent Post Op Complications Complications None Follow Up Care/Instructions Patient Instructions None needed. Anesthesia/Patient Condition Patient Condition Patient is doing well, no complaints, stable vital signs, no apparent adverse anesthesia problems. No complications reported per nursing. MORIAH HERNÁNDEZ CRNA Aug 07, 2018 15:50
[2018-08-07 15:55] VITALS: BP 116/79
[2018-08-07 16:25] VITALS: BP 119/88
[2018-08-07 16:55] VITALS: BP 121/76
--- NOTE | 2018-08-07 21:22 | OPERATIVE REPORT ---
DATE OF SERVICE: 08/07/2018 PREOPERATIVE DIAGNOSIS: Symptomatic between stage III and IV external and internal hemorrhoids. POSTOPERATIVE DIAGNOSIS: Symptomatic between stage III and IV external and internal hemorrhoids. PROCEDURE: Bunch closed hemorrhoidectomy. SURGEON: Michelet Hyde MD [employer] SALESPERSON: Casey Alonso APRN. ANESTHESIA: General laryngeal mask airway and local with a pudendal nerve block. ESTIMATED BLOOD LOSS: Minimal. FINDINGS: Acute on chronic inflammation of external as well as continuous internal hemorrhoids of all three hemorrhoidal cushions. All three were excised and closed without any anal stricture. DISPOSITION: The patient tolerated the procedure well. INDICATIONS: The patient is a 22-year-old female, who we have seen before in the past. She reports that she has had hemorrhoidal flareups as well as rectal bleeding for a significant amount of time. She had this during her first ; however, she was last and gave approximately 9 months ago in 2018 and states that she did have significant hemorrhoids during that time and since that time, they have not involuted. She reports that during anything that she does including just have a normal soft bowel movement. Ambulating or mild lifting, she has significant flare ups that would often bleed. She has tried again multiple stool softeners, high fiber as well as vwuk-scm-vboydyt remedies without any success. Upon examination, she was found to have stage III external and internal hemorrhoids; however, she showed multiple pictures of stage IV hemorrhoids; however, no signs of ischemia. DESCRIPTION OF PROCEDURE: The patient was brought to the operating room, laid supine on the table. After adequate IV pain and sedative medications and general laryngeal mask airway intubation, the patient was placed in lithotomy position and the perineum prepped and draped in standard surgical fashion. We first proceeded with a pudendal nerve block using 0.5% Marcaine with epinephrine to allow for adequate pain control as well as to allow for relaxation of the anal sphincters. A speculum was then placed visualizing acute on chronically inflamed hemorrhoidal cushions, both the two posterior questions as well as the anterior cushion. There are no sinus tracts, fistulization or any fissures identified. There were no abscesses identified as well. We then proceeded with formal excision of the external as well as continuous internal hemorrhoidal cushions in a systematic fashion. A 2-0 Vicryl suture was placed at the base of the internal hemorrhoid at the anal mucosa and tied this in place. We then proceeded with full excision of both the external and internal hemorrhoidal cushion using a Sonicision, identifying and sparing the muscle sphincters throughout the process. Good hemostasis was observed and using the same suture, the mucosa as well as the anoderm were then reapproximated using the 2-0 Vicryl suture in a running fashion. In a similar manner, the two other hemorrhoidal cushions were excised and she was sutured closed with visualization of good hemostasis. There is no stricture identified and we were able to get two fingerbreadths without any resistance. Good hemostasis was observed. A plug created out of Gelfoam as well as Surgicel and Surgilube was then placed into the anus to allow for hemostasis. The peritoneum was then covered with gauze, followed by an ABD pad. The patient tolerated the procedure well. She will be instructed to do Sitz baths q.i.d. as well as after every bowel movement as well as to expect a stringy white material during her first bowel movement and this will be normal fragments of the Surgicel that she will be instructed to remove manually. She also needs to proceed with stool softeners as well as laxatives and fiber to promote soft stools on a daily basis. We will have her follow up in approximately two weeks. Job ID: [id number] DocumentID: [id number] Dictated Date: 08/07/2018 15:04:53 Accounting Machine Mechanic Date: 08/07/2018 21:22:17 Dictated By: MICHELET HYDE MD [facility]
== END 2018-08-07 16:55 | disposition home or self-care (01) ==
LOC: SDC 11:13
PROVIDERS: ATTEND Surgery
DX: K64.3 Fourth degree hemorrhoids (principal)
CPT/HCPCS: 84703; 87081

== ENCOUNTER 2018-08-14 21:23 | Emergency (ER) | payer BC, MEDICAID ==
[~2018-08-14] VITALS: Ht 154.9 cm; Wt 50.8 kg
[~2018-08-14 21:23] MED LIST changes: +HYDR-34 PO
--- OUTSIDE RECORDS SUMMARY | 2018-08-14 21:31 | XMS REPORT | Continuity of Care Document ---
Author Organization Unknown Address Unknown Allergies Active Description Code Type Severity Reaction Onset Reported/Identified Relationship to Patient Clinical Status Yes NO NAME AVAILABLE 31851 DRUG N/ A N/A Yes NO NAME AVAILABLE 32019 DRUG N/ A N/A Yes Bactrim Drug Allergy N/A N/A 11/21/2010 Yes Penicillins Drug Allergy N/A N/A 11/21/2010 [place] [address] DRUG INGREDI N/A Hives 10/02/2017 10/02/2017 Yes SULFA ANTIBIOTICS 34 Drug Class High Sob 10/02/2017 10/02/2017 Yes SULFAMETHOXAZOLE-TRIMETHOPRIM 02434 DRUG INGREDI High Sob 10/02/20172017 Medications There is no data. Problems Date Dx Coded Attending Type Code Diagnosis Diagnosed By 03/28/2010 JEANNE FELTON APRN 311 MO DEPRESS NOS 06/02/2010 JEANNE FELTON APRN R 296.32 MO DEPRESSIVE RECURRENT MODERATE 06/02/2010 JEANNE FELTON APRN R 300.00 AN ANXIETY UNSPEC 11/21/2010 JEANNE FELTON APRN R 625.9 PELVIC PAIN 11/21/2010 JEANNE FELTON APRN R 782.2 LOCALIZED SUPERFICIAL SWELLING MASS OR LUMP 01/17/2011 JEANNE FELTON APRN R 296.80 MO BIPOLAR NOS 01/01/2013 JEANNE FELTON APRN R 461.9 SINUSITIS ACUTE Procedures There is no data. Results There is no data. Encounters ACCT No. Visit Date/Time Discharge Status Pt. Type Provider Facility Loc./Unit Complaint [id number] 01/01/2013 12:36:00 01/01/2013 23:59:59 CLS Outpatient JEANNE FELTON APRN [id number] 05/19/2017 13:44:30 05/19/2017 23:59:59 CLS Outpatient PROVIDER, [facility] [place] [id number] 10/02/2017 08:36:56 10/02/2017 23:59:59 CLS Outpatient [place] [employer] [facility] [id number] 10/02/2017 08:33:29 10/02/2017 23:59:59 [facility] Outpatient CASE, BO Montero [place] [employer] [facility]
[2018-08-14 21:36] VITALS: BP 132/94
--- NOTE | 2018-08-14 21:47 | ED GI ---
General Chief Complaint: Rect Problems Stated Complaint: HEMORRHOIDS History of Present Illness Date Seen by Provider: Aug 14, 2018 Time Seen by Provider: 21:45 Initial Comments 22 year old female presents for rectal pain. She had a hemorrhoidectomy by Dr. GARCIA on 08/07/18. She states that there is a recurrence of her hemorrhoid she has taken a picture of it which she showed me on her phone. She reports she has been taking stool softener and doing sitz bath. She got Hydrocodone/APAP 7.5/325 mg #35 on 08/12/18 and Oxycodone 7.5/325 mg #60 on . She has been taking 2 every 4 hours. She denies having a BM since surgery. Patient verbally aggressive towards this provider and making comments that she received poor care at Dr. Garcia's office yesterday by the INFORMAL WAITER/WAITRESS. She is requesting to see another provider, I offered to have her seen by Dr. Quick and patient said "you are happy to hear that, so you don't have to deal with me." Patient accused this provider of Anyi ferrera E.D. Tech present in room during this interaction and witnessed the communication and behaviors. Patients mother present in exam room and demanding more aggressive treatment, labs or "we will take her somewhere else and when they find something is wrong with her, you will be sorry" Timing/Duration: 2-3 Days Severity/Quality: Severe (01/29 "in my asshole") Associated Symptoms: Denies Symptoms Allergies and Home Medications Allergies Coded Allergies: Sulfa (Sulfonamide Antibiotics) (Unverified Allergy, Severe, 01/15/10) Penicillins (Unverified Allergy, Mild, 06/25/09) clindamycin (Verified Allergy, Unknown, HIVES, 12/30/17) sulfamethoxazole (Unverified Allergy, Unknown, 12/30/17) trimethoprim (Unverified Allergy, Unknown, 12/30/17) Home Medications Hydrocodone Bit/Acetaminophen 1 Ea Tablet, 1 EACH PO Q4H PRN for PAIN-MODERATE Prescribed by: MICHELET GARCIA on 08/07/18 1139 Patient Home Medication List Home Medication List Reviewed: Yes Review of Systems Review of Systems Constitutional: no symptoms reported, see HPI Gastrointestinal: See HPI, Constipated, Other (hemorrhoid) All Other Systems Reviewed Negative Unless Noted: Yes Past Zixonlx-Fpartn-Xjgfhp Hx Patient Social History 2nd Hand Smoke Exposure: No Recent Foreign Travel: No Contact w/Someone Who Travel: No Recent Hopitalizations: No Immunizations Up To Date Tetanus Booster (TDap): Unknown Seasonal Allergies Seasonal Allergies: No Past Medical History Surgeries: Yes (teeth cut out) Appendectomy, Section, Tonsillectomy Respiratory: No Cardiac: No Neurological: No Reproductive Disorders: No Sexually Transmitted Disease: No Genitourinary: No Gastrointestinal: Yes Hemorrhoids Musculoskeletal: No Endocrine: No HEENT: No Cancer: No Psychosocial: No Integumentary: No Blood Disorders: No Family Medical History Hypertension 19 MOTHER Physical Exam Vital Signs Vital Signs - First Documented 08/14/18 21:36 Temp 98.7 Pulse 98 Resp 22 B/P (MAP) 132/94 (107) Pulse Ox 99 O2 Delivery Room Air Capillary Refill : Height/Weight/BMI Height: 5'1.50" Weight: 112lbs. 0.0oz. [id number]; 20.8 BMI Method:Stated General Appearance: WD/WN, mild distress (crying) Respiratory: chest non-tender, lungs clear, normal breath sounds Cardiovascular: normal peripheral pulses, regular rate, rhythm, no murmur Gastrointestinal: normal bowel sounds, non tender, soft, distended (slightly) Rectal: hemorrhoids (small external, tender. No erythema, warmth, induration or signs of abscess. Patient would not tolerate checking for internal. ) Neurologic/Psychiatric: no motor/sensory deficits, alert, normal mood/affect, oriented x 3 Skin: normal color, warm/dry Progress/Results/Core Measures Results/Orders My Orders Orders - JOANNA GUILLAUME Lidocaine 2% Viscous 15 Ml (Xylocaine Vi (08/14/18 22:00) Medications Given in ED Current Medications Medications Dose Ordered Sig/Sabrina Route Start Time Stop Time Status Last Admin Dose Admin Lidocaine HCl 5 ml ONCE ONCE PO 08/14/18 22:00 08/14/18 22:01 DC 08/14/18 21:55 5 ML Vital Signs/I&O 08/14/18 21:36 Temp 98.7 Pulse 98 Resp 22 B/P (MAP) 132/94 (107) Pulse Ox 99 O2 Delivery Room Air Progress Progress Note : Time: 21:45 Progress Note Patient seen and evaluated, 2% viscous lidocaine applied to a 2 x 2 and placed in rectal area where patient complaining of pain. Area with strong body odor smell, not compatible with frequent sitz baths. Patient will not relax for thorough examination of rectum or hemorrhoids, but demanding we view pictures of her hemorrhoids on her phone. Recommended labs and re-evaluation by Dr. Quick. Patient and mother agreeable, mother reports that even though she is afebrile, "she had MRSA once with normal temperature." Discussed at length the importance of her having a BM, that her rectum is probably distended and tender bc of impacted stool. Encouraged she take stool softener and use a Fleets enema at home. Patient states "you have to take the pain away, I can't take it any longer" 2199 this provider left room to order labs, tech went into room to obtain blood and patient and mother verbalized they were unhappy with the care her, patient doesn't feel she is being treated appropriately, she is not a drug seeker, and they wish to leave and be seen elsewhere. This provider attepmpted to speak to them and was called a "fucking bitch" which was witnessed by Gissell, RN and Randall RN. Asked the patient to sign AMA form, she said "will you give me the rest of the lidocaine to take home?" When provider said no, she walked out the door and refused to sign the AMA form. 2229 the patient has called the ED desk twice and cussed/verbally abusive towards staff. Threatening staff and that she will call HR tomorrow. Pt reassured that she is welcome to return for labs and re-evaluation, as the provider wished to complete for her. Departure Impression Primary Impression: Hemorrhoids Qualified Codes: K64.0 - First degree hemorrhoids Additional Impression: Constipated Qualified Codes: K59.00 - Constipation, unspecified Disposition: 07 AGAINST MEDICAL ADVICE Condition: Against Medical Advice Departure-Patient Inst. Referrals: NO,LOCAL PHYSICIAN (PCP/Family) Primary Care Physician Copy Copies To 1: MICHELTE GARCIA MD, AMY ARNP Aug 14, 2018 21:47
[2018-08-14] MEDS ORDERED: OXYC-464 (21:48)
[2018-08-14] MEDS: LIDOCAINE 2% VISCOUS 15 ML UDC PO ONE (21:55)
--- NOTE | 2018-08-14 22:13 | NUR ---
PT WALKED OUT OF E.D. YELLING TO CHRISTY "FUCK YOU BITCH" REFUSED TO SIGN AMA PAPERWORK.
== END 2018-08-14 22:13 | disposition left against medical advice (07) ==
LOC: EDUNIT# 21:23 → ER 21:24
DX: K64.4 Residual hemorrhoidal skin tags (principal); K59.00 Constipation, unspecified; Z88.2 Allergy status to sulfonamides; Z88.0 Allergy status to penicillin; Z88.1 Allergy status to other antibiotic agents; Z88.8 Allergy status to other drugs, medicaments and biological substances; Z90.89 Acquired absence of other organs; Z90.49 Acquired absence of other specified parts of digestive tract; Z98.890 Other specified postprocedural states; Z87.19 Personal history of other diseases of the digestive system
CPT/HCPCS: 99282